=== PATIENT | female | born 1985 | race Caucasian/White ===

== ENCOUNTER 2023-06-17 23:55 | Inpatient (IN) | payer OTHER, SELFPAY ==
[2023-06-17] VITALS (34 sets, daily range): BP systolic 118–219; BP diastolic 74–153; BMI 21.9
[2023-06-17 20:40] LABS: Glucose - Point of Care 58 mg/dl (70-99)
[2023-06-17 20:58] LABS: Glucose - Point of Care 98 mg/dl (70-99)
[2023-06-17] MEDS: CORDARONE 518 MG IV (21:03)
[2023-06-17] MEDS: CARDENE 200 IV (21:06)
[2023-06-17] MEDS: DIPRIVAN 100 IV (21:06)
[2023-06-17 21:17] LABS: Hematocrit 39.7 % (37.0-47.0); Mean Corp Hgb Conc. 32.7 g/dL (33.0-37.0); Mean Corpuscular Hgb 28.1 pg (27.0-31.0); Mean Corpuscular Volume 85.7 fL (81.0-99.0); Mean Platelet Volume 10.4 fL (7.4-10.4); Platelet Count 190 10^3/uL (130-400); Red Blood Cell Count 4.63 10^6/uL (4.20-5.40); Red Cell Dist. Width 15.7 % (11.5-14.5); White Blood Cell Count 11.2 10^3/uL (4.8-10.8)
[2023-06-17 21:19] LABS: Venous Blood Gas HCO3 18.8 mmol/L (22-27); Venous Blood Gas O2 Sat % 96.2 %; Venous Blood Gas pCO2 47 mmHg (35-48); Venous Blood Gas pH 7.21 (7.32-7.43); Venous Blood Gas pO2 89 mmHg (30-50)
[2023-06-17 21:25] LABS: INR 1.05; PT 13.6 Sec (11.4-14.6)
--- NOTE | 2023-06-17 21:26 | EDRN ---
The patient arrived at 2029 via EMS. EMS reported the patient was hypotensive, had been vomiting, and has a history of kidney failure. The patient was placed on the rn cardiac and was found to be in V-Tach. The patient was talking and had a
strong femoral pulse. Dr. Yepez called to room. Dr. Yepez placed a right IJ and medications were given. (see MAR) The patients accu chek was 58. The patient started to complain of having severe chest pain and became unresponsive. The patient was
cardioverted with 250J on sync. mode. The patient continued to have a strong femoral pulse and was SB on the monitor. At 2047 the patient was intubated with a 7.5 ETT at 23 at the lip. The patient was given 40mg of vecuronium was given IV at 2048.
The patient was placed on the vent by resp.
[2023-06-17 21:34] LABS: Lactic Acid 4.1 mmol/L (0.7-2.0)
[2023-06-17 21:37] LABS: ALT (SGPT) 57 U/L (0-35); AST (SGOT) 86 U/L (14-36); Albumin 4.6 g/dl (3.5-5.0); Alkaline Phosphatase 211 U/L (38-126); Blood Urea Nitrogen 78 mg/dl (7-17); Calcium 10.4 mg/dl (8.4-10.2); Carbon Dioxide 17 mmol/L (22-30); Chloride 86 mmol/L (98-107); Glucose 247 mg/dl (70-99); Magnesium 2.8 mg/dl (1.6-2.3); Potassium 6.3 mmol/L (3.5-5.1); Sodium 130 mmol/L (135-145); Total Bilirubin 1.8 mg/dl (0.2-1.3); Total Protein 7.5 g/dl (6.3-8.2); eGFR 4.12
[2023-06-17 21:47] LABS: Troponin I 0.088 ng/ml
--- NOTE | 2023-06-17 21:48 | EDRN ---
MEDS GIVEN:
2039: Amp of 10% Calcium Chloride 1g/10mL
2039: Amp of Dextrose 25G/50mL
2041: Amp of Sodium Bicarb 50 mEq/50mL
2042: 150mg Amiodarone Bolus
2043: Cardioversion @ 250J
2044: Strong Pulse
2046: 20mg Etomidate given and tubed by Dr. Morales w/ 7.5 EtT, 23 @ the lip + color change on capnography
2048: 20mg of Vecuronium
2099: Central line placed in left groin
2101: Amp. of 10% Calcium Chloride 1g/10mL as well as an amp. of Sodium Bicarb 50mEQ/50mL
2105: Propofol and Cardene drips started
2107: Sinus Rhythm on the monitor
--- NOTE | 2023-06-17 21:57 | ED.GENMED ---
History of Present Illness
<Arsenio Yepez DO - Last Filed: 06/20/23 06:06>
General
Chief Complaint: Chest Pain
Source: patient, family and ambulance crew
Exam Limitations: clinical condition
Time Seen by Provider: 06/17/23 21:17
Travel History
Have you had any contact with someone who has COVID-19?: Unable to Answer
Do you have any symptoms of coronavirus? Fever > 100 degrees, chills, cough, shortness of breath, sore throat, loss of taste or smell, muscle aches, or headache?: Unable to Answer
History of Present Illness
History of Present Illness:
38-year-old female who presents after she began to have some GI upset yesterday and today progressed to vomiting. The patient arrives semiresponsive complaining of 'something is wrong'. EMS reported the patient is vomiting. On arrival she was
noted to be in V. tach. Patient was diaphoretic and somnolent. Further history is limited due to her clinical condition. Patient's sister later states that she got Tums yesterday and it seemed to help but today had been vomiting. She is not a
diabetic. Does have a long history of end-stage renal disease on dialysis with last dialysis event on Sunday.
Past History
<Arsenio Yepez DO - Last Filed: 06/20/23 06:06>
Past History
ED Past Medical History: HTN, Renal failure and Other (lupus)
ED Past Surgical History: Other (AV fistula)
Patient has exhibited threatening behavior?: No
PSI?: No
Phy Exam
<Arsenio Yepez, DO - Last Filed: 06/20/23 06:06>
Physical Exam
Physical Exam:
CONSTITUTIONAL ill-appearing. Somnolent, diaphoretic, cool to touch.
HEAD atraumatic, normocephalic.
EYES eyelids normal to inspection, Pupils equally round and reactive to light, Extraocular muscles intact, Conjunctiva normal, Sclera normal.
NECK normal range of motion, Trachea midline, no jugular venous distention.
RESPIRATORY CHEST moderate respiratory distress noted, Chest expansion equal.
CARDIOVASCULAR ventricular tachycardia noted on arrival
ABDOMEN abdomen flat.
UPPER EXTREMITY range of motion normal, Motor strength normal, no cyanosis, no edema. Right upper extremity AV graft noted with normal thrill
LOWER EXTREMITY range of motion normal, Motor strength normal, no cyanosis, no edema.
NEURO somewhat responsive, moves all extremities but poorly follows commands
Scores
<Mckinley Alfaro, DO - Last Filed: 06/17/23 22:16>
Heart Score for Chest Pain Patients
STEMI patient?: Not applicable
Course
<Arsenio Yepez, DO - Last Filed: 06/20/23 06:06>
Orders/Labs/Results
Orders:
Orders
06/17/23 20:44
Lorazepam [Ativan] 2 mg .ROUTE .STK-MED ONE
06/17/23 20:49
Propofol 1,000,000 Mcg/100 ml [Diprivan] 1,000,000 mcg in 100 ml .ROUTE .STK-MED
Propofol [Diprivan] 20 ml .ROUTE .STK-MED
06/17/23 20:51
Chest X-ray Portable [CR Chest Portable - 1 View] Stat
Comment:
Reason For Exam: tube placement
Reason Study Needs to be Portable: Patient Unstable
06/17/23 20:53
Amiodarone [Cordarone] 900 mg DEXTROSE 5% PVC-free BAG [D5W PVC-free BAG] 500 ml IV NOW
06/17/23 21:01
Electrocardiogram (*1) Urgent
Reason for Study: Other
Other Reason for Exam: Possible Sepsis
Cardiac Monitoring- Treatment ONCE
EKG- Treatment ONCE
06/17/23 21:04
Type+Screen Stat
Lactic Acid Stat
Blood Culture Urgent
FANY Source: Blood/Venous
Specimen Description:
06/17/23 21:05
Complete Blood Count/No Diff Stat
Comprehensive Metabolic Panel Stat
HCG, Serum Qualitative Screen Stat
Comment: ADD ON
Lipase Stat
Comment: ADD ON
Magnesium Stat
PTT Stat
Comment: ADD ON
Prothrombin Time Stat
Triglycerides Routine
Comment: baseline levels with propofol infusion
Troponin I Stat
Venous Blood Gas Stat
%Oxygen/Room Air: 100- bagged
Blood Culture Q30M
FANY Source: Blood/Venous
Specimen Description:
Comment: FROM 2 SEPARATE SITES
06/17/23 21:08
EKG [Electrocardiogram (*1)] Urgent
Reason for Study: Chest Pain
EKG- Treatment ONCE
06/17/23 21:37
CT Abd/pel Without Iv Or Oral Stat
Comment:
Reason For Exam: abd pain, vomiting, ESRD
CT Head W/o Iv Contrast Stat
Comment:
Reason For Exam: HTN, vomiting
06/17/23 21:49
Add On- LAB Stat
Tests Added?: lipase
Dextrose 50%-Water [Dextrose 50% Syringe] 25 grams IV NOW STA
Insulin Human Regular [Novolin R] 10 units IV NOW STA
06/17/23 21:52
Nicardipine 40 mg/200 ml [Cardene] 40 mg in 200 ml IV NOW
Initial dose in mg/hr, then titrate:: 5
Titrate to keep:: BP < 180/105 mmHg
Titrate by mg/hr:: 2.5 mg/hr
Frequency of titrations (minutes):: 5-15 minutes
Maximum dose in mg/hr:: 15
Begin to taper infusion when:: Remained at goal for 2hrs
Taper by mg/hr:: 2.5 mg/hr
Frequency of taper (minutes) if patient maintains goal:: 15-30 minutes
Taper to off?: Yes
If infusion off & no longer maintaining goal:: Contact Provider
06/17/23 21:53
Add On- LAB Stat
Tests Added?: HCG qualitative
06/17/23 21:55
Propofol 1,000,000 Mcg/100 ml [Diprivan] 1,000,000 mcg in 100 ml IV NOW
Indication:: Light Sedation
Begin Infusion:: Now
Goal:: RASS 0 to -2
Maximum dose in mcg/kg/min:: 50
Initial dose based on RASS:: Yes
If RASS is:: +1 or pt hemodynamically unstable (SBP < 90mmHg), initiate at 10 mcg/kg/min
If RASS is:: +2, initiate at 20 mcg/kg/min
If RASS is:: greater than or equal to +3, initiate at 30 mcg/kg/min
Titration Instructions:: Titrate by 5-10 mcg/kg/min every 5 minutes until RASS 0 to -2 achieved.
Taper Instructions:: If RASS is at or below goal for 4 consecutive hours decrease infusion by
Taper Instructions:: 5-10 mcg/kg/min every 2 hours to off.
Over-sedation Instructions:: If CPOT 0-2 (at goal) AND RASS -3 to -5 (below goal) decrease sedative by
Over-sedation Instructions:: 50% first. If pain score remains at goal and RASS remains below goal in
Over-sedation Instructions:: 1 hour, decrease opioid infusion by 50%.
Notify provider:: immediately if patient exhibits signs/symptoms of propofol-related
Notify provider:: infusion syndrome.
Additional Instructions:: Patient MUST be mechanically ventilated and MUST receive analgesia.
06/17/23 21:58
Sodium Zirconium Cyclosilicate [Lokelma] 10 gram PO NOW STA
06/17/23 21:59
Sodium Bicarbonate 50 meq IV NOW STA
06/17/23 22:02
Cefepime HCl [Maxipime] 1,000 mg IV NOW STA
Vancomycin 1 Gram/200 ml [Vancocin] 1 gram in 200 ml IV NOW
06/17/23 22:05
Vancomycin 1 Gram/200 ml [Vancocin] 1 gram in 200 ml .ROUTE .STK-MED
06/17/23 22:07
Hemodialysis treatment As Directed
Treatment date:: 06/18/23
Treatment type: Hemodialysis
Ultrafiltration (kg): 2.5-3.5
Treatment time (duration): 3 hours 30 minutes
Use dialysis access:: AVF
Dialyzer:: Optiflux 160
Blood flow rate minimum: 350
Blood flow rate maximum: 400
Dialysis flow rate: 600 mL/min
Dialysate temperature: 37 degrees Celsius
Sodium (Na): 137
Potassium (K): 2
Calcium (Ca): 2.5
Bicarbonate (HCO3): 37
06/17/23 23:00
Flush (0.9% Sodium Chloride) [Flush (Nss)] See Dose Instructions IV PER PROTOCOL
06/17/23 23:53
Admit/Transfer Patient As Directed
Co-Sign Provider:
Level of Care: Inpatient admission
Assign to:: ICU
Physician / Group: Srini
Diagnosis: Ventricular Tachycardia, Hyperkalemia, ESRD
Reason for Hospitalization: Ventricular Tachycardia, Hyperkalemia, ESRD
Expected length of stay greater than two midnights?: Yes
ELOS- Estimated Length of Stay in days: 5
I certify the patient meets the requirements for IP care: Yes
06/18/23 01:13
Acetaminophen [Tylenol Oral Solution] 650 mg TUBE Q6H PRN
Propofol 1,000,000 Mcg/100 ml [Diprivan] 1,000,000 mcg in 100 ml IV PER PROTOCOL
Indication:: Light Sedation
Begin Infusion:: Now
Goal:: RASS 0 to -2
Maximum dose in mcg/kg/min:: 50
Continue currently infusion dose and titrate:: Yes
Titration Instructions:: Titrate by 5-10 mcg/kg/min every 5 minutes until RASS 0 to -2 achieved.
Taper Instructions:: If RASS is at or below goal for 4 consecutive hours decrease infusion by
Taper Instructions:: 5-10 mcg/kg/min every 2 hours to off.
Over-sedation Instructions:: If CPOT 0-2 (at goal) AND RASS -3 to -5 (below goal) decrease sedative by
Over-sedation Instructions:: 50% first. If pain score remains at goal and RASS remains below goal in
Over-sedation Instructions:: 1 hour, decrease opioid infusion by 50%.
Notify provider:: immediately if patient exhibits signs/symptoms of propofol-related
Notify provider:: infusion syndrome.
Additional Instructions:: Patient MUST be mechanically ventilated and MUST recieve analgesia
VANCOMYCIN Pharmacy to Dose [VANCOCIN Pharmacy to Dose] 1 each Pharmacy To Prepare [Call Pharmacy To Prepare] 0 ml IV PER PROTOCOL
06/18/23 01:13
CARDIOLOGY CONSULT Routine
Consulting Provider: John Longo
Was physician already notified: Yes
Reason for consult: Ventricular Tachycardia, Hyperkalemia, ESRD
Consult Notification Routine
Specialty to Notify: [employer]
Date consulting provider notified: 06/18/23
Time consulting provider notified: 08:22
Notified:: Provider
[employer] Consult Routine
Consulting Provider: Howie Carrion
Was physician already notified: No
Reason for consult: Ventricular Tachycardia, Hyperkalemia, ESRD
NEPHROLOGY CONSULT Urgent
Consulting Provider: Aziza Desai
Was physician already notified: Yes
Reason for consult: Ventricular Tachycardia, Hyperkalemia, ESRD
Activity As Directed
Activity Level: Bedrest
EKG with chest pain [ECG as needed] As Directed
ECG as needed for:: Chest Pain
I/O [Intake/ Output] As Directed
Frequency: Per unit guidelines
Pneumatic Compression Sleeves As Directed
Type: Knee high
Vital Signs As Directed
Frequency: Per unit guidelines
Weight As Directed
Frequency: Daily
DX Deep Vein Thrombosis Video Routine
06/18/23 02:31
BMP [Basic Metabolic Panel] Routine
TSH Reflex To Free T4 Routine
Triglycerides Routine
Comment: baseline levels with propofol infusion
06/18/23 05:40
Basic Metabolic Panel IN AM
Complete Blood Count/No Diff IN AM
Magnesium IN AM
Phosphorus IN AM
06/18/23 06:00
EKG [Electrocardiogram (*1)] IN AM
Reason for Study: Chest Pain
NPO
Allow oral meds: Yes
Allow clear liquids: Sips of Clears
06/18/23 08:00
Mannitol 12.5 grams IV HD-Q1HPRN PRN
Polyethylene Glycol Powder [Miralax] 17 grams TUBE DAILY
06/20/23 04:32
Triglycerides Q3D
Comment: every 72 hours while patient is on propofol
06/23/23 06:00
Triglycerides Q3D
Comment: every 72 hours while patient is on propofol
06/26/23 06:00
Triglycerides Q3D
Comment: every 72 hours while patient is on propofol
Abnormal Lab Results
06/17/23 06/17/23 06/17/23
20:39 21:04 21:05
WBC 11.2 H 10^3/uL
(4.8-10.8)
MCHC 32.7 L g/dL
(33.0-37.0)
RDW 15.7 H %
(11.5-14.5)
APTT 36.3 H Sec
(23.4-35.0)
VBG pH 7.21 L
(7.32-7.43)
VBG pO2 89 H mmHg
(30-50)
VBG HCO3 18.8 L mmol/L
(22-27)
Sodium 130 L mmol/L
(135-145)
Potassium 6.3 H* mmol/L
(3.5-5.1)
Chloride 86 L mmol/L
(98-107)
Carbon Dioxide 17 L mmol/L
(22-30)
BUN 78 H mg/dl
(7-17)
Creatinine 11.1 H* mg/dL
(0.6-1.0)
Glucose 247 H mg/dl
(70-99)
Lactic Acid 4.1 H* mmol/L
(0.7-2.0)
Calcium 10.4 H mg/dl
(8.4-10.2)
Magnesium 2.8 H mg/dl
(1.6-2.3)
Total Bilirubin 1.8 H mg/dl
(0.2-1.3)
AST 86 H U/L
(14-36)
ALT 57 H U/L
(0-35)
Alkaline Phosphatase 211 H U/L
(38-126)
Troponin I 0.088 H* ng/ml
Triglycerides 150 H mg/dl
(10-149)
POC Glucose 58 L mg/dl
(70-99)
06/17/23
22:13
WBC
MCHC
RDW
APTT
VBG pH
VBG pO2
VBG HCO3
Sodium
Potassium
Chloride
Carbon Dioxide
BUN
Creatinine
Glucose
Lactic Acid
Calcium
Magnesium
Total Bilirubin
AST
ALT
Alkaline Phosphatase
Troponin I
Triglycerides
POC Glucose 205 H mg/dl
(70-99)
06/17/23 21:05
06/17/23 21:05
Vital Signs
Initial and Last Documented VS:
Initial Vital Signs
Temp Pulse Resp BP Pulse Ox
94.2 F L 180 18 143/112 96
06/17/23 20:45 06/17/23 20:45 06/17/23 20:45 06/17/23 20:45 06/17/23 20:45
Last Documented Vital Signs
Temp Pulse Resp BP Pulse Ox
97.9 F 69 20 141/98 94
06/20/23 04:00 06/20/23 04:00 06/19/23 09:55 06/20/23 04:00 06/20/23 04:00
<Mckinley Alfaro, DO - Last Filed: 06/17/23 22:16>
Orders/Labs/Results
Orders:
Orders
06/17/23 20:44
Lorazepam [Ativan] 2 mg .ROUTE .STK-MED ONE
06/17/23 20:49
Propofol 1,000,000 Mcg/100 ml [Diprivan] 1,000,000 mcg in 100 ml .ROUTE .STK-MED
Propofol [Diprivan] 20 ml .ROUTE .STK-MED
06/17/23 20:51
Chest X-ray Portable [CR Chest Portable - 1 View] Stat
Comment:
Reason For Exam: tube placement
Reason Study Needs to be Portable: Patient Unstable
06/17/23 20:53
Amiodarone [Cordarone] 900 mg DEXTROSE 5% PVC-free BAG [D5W PVC-free BAG] 500 ml IV NOW
06/17/23 21:01
Electrocardiogram (*1) Urgent
Reason for Study: Other
Other Reason for Exam: Possible Sepsis
Cardiac Monitoring- Treatment ONCE
EKG- Treatment ONCE
06/17/23 21:04
Type+Screen Stat
Lactic Acid Stat
Blood Culture Urgent
FANY Source: Blood/Venous
Specimen Description:
06/17/23 21:05
Complete Blood Count/No Diff Stat
Comprehensive Metabolic Panel Stat
HCG, Serum Qualitative Screen Stat
Comment: ADD ON
Lipase Stat
Comment: ADD ON
Magnesium Stat
PTT Stat
Comment: ADD ON
Prothrombin Time Stat
Triglycerides Routine
Comment: baseline levels with propofol infusion
Troponin I Stat
Venous Blood Gas Stat
%Oxygen/Room Air: 100- bagged
Blood Culture Q30M
FANY Source: Blood/Venous
Specimen Description:
Comment: FROM 2 SEPARATE SITES
06/17/23 21:08
EKG [Electrocardiogram (*1)] Urgent
Reason for Study: Chest Pain
EKG- Treatment ONCE
06/17/23 21:37
CT Abd/pel Without Iv Or Oral Stat
Comment:
Reason For Exam: abd pain, vomiting, ESRD
CT Head W/o Iv Contrast Stat
Comment:
Reason For Exam: HTN, vomiting
06/17/23 21:49
Add On- LAB Stat
Tests Added?: lipase
Dextrose 50%-Water [Dextrose 50% Syringe] 25 grams IV NOW STA
Insulin Human Regular [Novolin R] 10 units IV NOW STA
06/17/23 21:52
Nicardipine 40 mg/200 ml [Cardene] 40 mg in 200 ml IV NOW
Initial dose in mg/hr, then titrate:: 5
Titrate to keep:: BP < 180/105 mmHg
Titrate by mg/hr:: 2.5 mg/hr
Frequency of titrations (minutes):: 5-15 minutes
Maximum dose in mg/hr:: 15
Begin to taper infusion when:: Remained at goal for 2hrs
Taper by mg/hr:: 2.5 mg/hr
Frequency of taper (minutes) if patient maintains goal:: 15-30 minutes
Taper to off?: Yes
If infusion off & no longer maintaining goal:: Contact Provider
06/17/23 21:53
Add On- LAB Stat
Tests Added?: HCG qualitative
06/17/23 21:55
Propofol 1,000,000 Mcg/100 ml [Diprivan] 1,000,000 mcg in 100 ml IV NOW
Indication:: Light Sedation
Begin Infusion:: Now
Goal:: RASS 0 to -2
Maximum dose in mcg/kg/min:: 50
Initial dose based on RASS:: Yes
If RASS is:: +1 or pt hemodynamically unstable (SBP < 90mmHg), initiate at 10 mcg/kg/min
If RASS is:: +2, initiate at 20 mcg/kg/min
If RASS is:: greater than or equal to +3, initiate at 30 mcg/kg/min
Titration Instructions:: Titrate by 5-10 mcg/kg/min every 5 minutes until RASS 0 to -2 achieved.
Taper Instructions:: If RASS is at or below goal for 4 consecutive hours decrease infusion by
Taper Instructions:: 5-10 mcg/kg/min every 2 hours to off.
Over-sedation Instructions:: If CPOT 0-2 (at goal) AND RASS -3 to -5 (below goal) decrease sedative by
Over-sedation Instructions:: 50% first. If pain score remains at goal and RASS remains below goal in
Over-sedation Instructions:: 1 hour, decrease opioid infusion by 50%.
Notify provider:: immediately if patient exhibits signs/symptoms of propofol-related
Notify provider:: infusion syndrome.
Additional Instructions:: Patient MUST be mechanically ventilated and MUST receive analgesia.
06/17/23 21:58
Sodium Zirconium Cyclosilicate [Lokelma] 10 gram PO NOW STA
06/17/23 21:59
Sodium Bicarbonate 50 meq IV NOW STA
06/17/23 22:02
Cefepime HCl [Maxipime] 1,000 mg IV NOW STA
Vancomycin 1 Gram/200 ml [Vancocin] 1 gram in 200 ml IV NOW
06/17/23 22:05
Vancomycin 1 Gram/200 ml [Vancocin] 1 gram in 200 ml .ROUTE .STK-MED
06/17/23 22:07
Hemodialysis treatment As Directed
Treatment date:: 06/18/23
Treatment type: Hemodialysis
Ultrafiltration (kg): 2.5-3.5
Treatment time (duration): 3 hours 30 minutes
Use dialysis access:: AVF
Dialyzer:: Optiflux 160
Blood flow rate minimum: 350
Blood flow rate maximum: 400
Dialysis flow rate: 600 mL/min
Dialysate temperature: 37 degrees Celsius
Sodium (Na): 137
Potassium (K): 2
Calcium (Ca): 2.5
Bicarbonate (HCO3): 37
06/17/23 23:00
Flush (0.9% Sodium Chloride) [Flush (Nss)] See Dose Instructions IV PER PROTOCOL
06/17/23 23:53
Admit/Transfer Patient As Directed
Co-Sign Provider:
Level of Care: Inpatient admission
Assign to:: ICU
Physician / Group: Srini
Diagnosis: Ventricular Tachycardia, Hyperkalemia, ESRD
Reason for Hospitalization: Ventricular Tachycardia, Hyperkalemia, ESRD
Expected length of stay greater than two midnights?: Yes
ELOS- Estimated Length of Stay in days: 5
I certify the patient meets the requirements for IP care: Yes
06/18/23 01:13
Acetaminophen [Tylenol Oral Solution] 650 mg TUBE Q6H PRN
Propofol 1,000,000 Mcg/100 ml [Diprivan] 1,000,000 mcg in 100 ml IV PER PROTOCOL
Indication:: Light Sedation
Begin Infusion:: Now
Goal:: RASS 0 to -2
Maximum dose in mcg/kg/min:: 50
Continue currently infusion dose and titrate:: Yes
Titration Instructions:: Titrate by 5-10 mcg/kg/min every 5 minutes until RASS 0 to -2 achieved.
Taper Instructions:: If RASS is at or below goal for 4 consecutive hours decrease infusion by
Taper Instructions:: 5-10 mcg/kg/min every 2 hours to off.
Over-sedation Instructions:: If CPOT 0-2 (at goal) AND RASS -3 to -5 (below goal) decrease sedative by
Over-sedation Instructions:: 50% first. If pain score remains at goal and RASS remains below goal in
Over-sedation Instructions:: 1 hour, decrease opioid infusion by 50%.
Notify provider:: immediately if patient exhibits signs/symptoms of propofol-related
Notify provider:: infusion syndrome.
Additional Instructions:: Patient MUST be mechanically ventilated and MUST recieve analgesia
VANCOMYCIN Pharmacy to Dose [VANCOCIN Pharmacy to Dose] 1 each Pharmacy To Prepare [Call Pharmacy To Prepare] 0 ml IV PER PROTOCOL
06/18/23 01:13
CARDIOLOGY CONSULT Routine
Consulting Provider: John Longo
Was physician already notified: Yes
Reason for consult: Ventricular Tachycardia, Hyperkalemia, ESRD
Consult Notification Routine
Specialty to Notify: [employer]
Date consulting provider notified: 06/18/23
Time consulting provider notified: 08:22
Notified:: Provider
[employer] Consult Routine
Consulting Provider: Howie Carrion
Was physician already notified: No
Reason for consult: Ventricular Tachycardia, Hyperkalemia, ESRD
NEPHROLOGY CONSULT Urgent
Consulting Provider: Aziza Desai
Was physician already notified: Yes
Reason for consult: Ventricular Tachycardia, Hyperkalemia, ESRD
Activity As Directed
Activity Level: Bedrest
EKG with chest pain [ECG as needed] As Directed
ECG as needed for:: Chest Pain
I/O [Intake/ Output] As Directed
Frequency: Per unit guidelines
Pneumatic Compression Sleeves As Directed
Type: Knee high
Vital Signs As Directed
Frequency: Per unit guidelines
Weight As Directed
Frequency: Daily
DX Deep Vein Thrombosis Video Routine
06/18/23 02:31
BMP [Basic Metabolic Panel] Routine
TSH Reflex To Free T4 Routine
Triglycerides Routine
Comment: baseline levels with propofol infusion
06/18/23 05:40
Basic Metabolic Panel IN AM
Complete Blood Count/No Diff IN AM
Magnesium IN AM
Phosphorus IN AM
06/18/23 06:00
EKG [Electrocardiogram (*1)] IN AM
Reason for Study: Chest Pain
NPO
Allow oral meds: Yes
Allow clear liquids: Sips of Clears
06/18/23 08:00
Mannitol 12.5 grams IV HD-Q1HPRN PRN
Polyethylene Glycol Powder [Miralax] 17 grams TUBE DAILY
06/20/23 04:32
Triglycerides Q3D
Comment: every 72 hours while patient is on propofol
06/23/23 06:00
Triglycerides Q3D
Comment: every 72 hours while patient is on propofol
06/26/23 06:00
Triglycerides Q3D
Comment: every 72 hours while patient is on propofol
Abnormal Lab Results
06/17/23 06/17/23 06/17/23
20:39 21:04 21:05
WBC 11.2 H 10^3/uL
(4.8-10.8)
MCHC 32.7 L g/dL
(33.0-37.0)
RDW 15.7 H %
(11.5-14.5)
APTT 36.3 H Sec
(23.4-35.0)
VBG pH 7.21 L
(7.32-7.43)
VBG pO2 89 H mmHg
(30-50)
VBG HCO3 18.8 L mmol/L
(22-27)
Sodium 130 L mmol/L
(135-145)
Potassium 6.3 H* mmol/L
(3.5-5.1)
Chloride 86 L mmol/L
(98-107)
Carbon Dioxide 17 L mmol/L
(22-30)
BUN 78 H mg/dl
(7-17)
Creatinine 11.1 H* mg/dL
(0.6-1.0)
Glucose 247 H mg/dl
(70-99)
Lactic Acid 4.1 H* mmol/L
(0.7-2.0)
Calcium 10.4 H mg/dl
(8.4-10.2)
Magnesium 2.8 H mg/dl
(1.6-2.3)
Total Bilirubin 1.8 H mg/dl
(0.2-1.3)
AST 86 H U/L
(14-36)
ALT 57 H U/L
(0-35)
Alkaline Phosphatase 211 H U/L
(38-126)
Troponin I 0.088 H* ng/ml
Triglycerides 150 H mg/dl
(10-149)
POC Glucose 58 L mg/dl
(70-99)
06/17/23
22:13
WBC
MCHC
RDW
APTT
VBG pH
VBG pO2
VBG HCO3
Sodium
Potassium
Chloride
Carbon Dioxide
BUN
Creatinine
Glucose
Lactic Acid
Calcium
Magnesium
Total Bilirubin
AST
ALT
Alkaline Phosphatase
Troponin I
Triglycerides
POC Glucose 205 H mg/dl
(70-99)
06/17/23 21:05
06/17/23 21:05
Vital Signs
Initial and Last Documented VS:
Initial Vital Signs
Temp Pulse Resp BP Pulse Ox
94.2 F L 180 18 143/112 96
06/17/23 20:45 06/17/23 20:45 06/17/23 20:45 06/17/23 20:45 06/17/23 20:45
Last Documented Vital Signs
Temp Pulse Resp BP Pulse Ox
97.9 F 69 20 141/98 94
06/20/23 04:00 06/20/23 04:00 06/19/23 09:55 06/20/23 04:00 06/20/23 04:00
Procedures
<Arsenio Yepez, DO - Last Filed: 06/20/23 06:06>
Cardioversion
Indication:: Other (VT)
Performed by:: Dr Yepez
Energy Used: Other (360)
Number of attempts: 1
Successful?: Yes
Complications: none
Intubations
Procedure completed by: Dr Yepez
Method of Intubation: glidescope
Tube size (cm): 7.5
Placement confirmed by: CXR, capnography and direct visualization
Breath sounds after intubation: equal
Intubation complications: no complications
IV Access
Indication: Emergent access required
Performed by:: Dr Yepez
Site:: R EJ
Gauge:: 20
Ultrasound Guidance: No
<Mckinley Alfaro, DO - Last Filed: 06/17/23 22:16>
Central Line
Right Femoral:
Indication for procedure:: venous access
Procedure completed by: Me, Dr. Alfaro
Consent form signed: No
If no, reason: Emergency procedure
Anesthesia: 1% Lidocaine
Central line lumen: triple
Number of attempts: 1
Central line complications: none
Sterile dressing applied?: Yes
Additional information:
I assisted Dr. Yepez as he was primarily caring for this patient but patient had poor venous access with inability to obtain labs. I emergently placed femoral line as patient was in the heaven-code situation and was getting intubated.
<Arsenio Yepez, DO - Last Filed: 06/20/23 06:06>
MDM/Problems Addressed
MDM/Problems Addressed:
Acute hyperkalemia, vomiting, acidosis, lactic acidosis, respiratory failure, ventricular tachycardia, hypoglycemia
Chronic conditions affecting care: Kidney disease
<Arsenio Yepez, DO - Last Filed: 06/20/23 06:06>
*Radiology
Radiology exam reviewed: preliminary read by ED provider (ET tube in correct position, cardiomegaly noted)
*Pulse Oximetry
Patient hypoxic: yes
*EKG
Interpreted by ED Provider?: Yes
Interpretation: abnormal
Rate: bradycardiac
Rhythm: other (Junctional)
QRS Pattern: left vent hypertrophy
Ischemia: other (Hyperacute T waves)
*Outpatient Physical Therapist Interpretation
Rate: tachycardiac
Interpretation: abnormal
Rhythm: other (Ventricular tachycardia on arrival)
*Critical Care Note
Total Time (30-74mins, 75-104mins- exclusive of procedures): 80 minutes
Data Reviewed
Review of Other/Old Records Reveals: Labs and Records
Source: ambulance crew
<Arsenio Yepez DO - Last Filed: 06/20/23 06:06>
Patient Management
Discussion with other providers: Records Management Coordinator (Case discussed with nephrology who recommends additional sodium bicarbonate, Lokelma via NG tube and to add nitroglycerin if blood pressure continues to be elevated. She will consider hemodialysis early
in the a.m. versus emergent)
Escalation/DeEscalation of care consider admission/obs:
38-year-old female who arrives with EMS for vomiting. Noted to be in VT. Given calcium and bicarb emergently on arrival. This did not resolve VT. She subsequently had an unresponsive event where it appeared to be seizing. She was intubated and
cardioverted. She had a pulse with her VT. Amiodarone bolus was given followed by drip. In addition, after cardioversion, she had a junctional rhythm with hyperacute T waves. She was given additional calcium and sodium bicarbonate bolus.
Shortly after this, she converted to normal sinus rhythm. Blood pressure is uncontrolled. Cardene drip initiated. Case was discussed with nephrology with regards to the possibility of emergent hemodialysis. She agreed with management and advised
as above. She is hypothermic. Broad-spectrum antibiotics ordered. In addition we will CT head and abdomen and pelvis in light of her reports of vomiting and hypertension. Admit to ICU. Now on propofol, amiodarone, Cardene.
ED Attending Note
<Arsenio Yepez DO - Last Filed: 06/20/23 06:06>
-
Portions of this chart may have been created with voice recognition software.� Occasional wrong word or��sound alike� substitutions may have occurred due to the inherent limitations of voice recognition software.
Discharge Plan
Departure
Patient Disposition: Admit
Date of Disposition: 06/17/23
Time of Disposition: 21:57
Admit to: ICU
Presentation/result/management discussed w/ accepting MD/DO: Hospitalist
Discharge Problem:
Acute hyperkalemia, End stage kidney disease, Ventricular tachycardia, vent dependent respiratory failure
Interventions
Interventions:
*Risk Screen - Suicide Last Done: 06/17/23 20:45
*General Assessment Last Done: 06/17/23 20:45
*Neglect/Abuse Screening Last Done: 06/17/23 20:45
ED- Fall Risk Assessment Last Done: 06/17/23 20:35
*ED COVID-19 Vaccine History Last Done: 06/17/23 20:45
*Nursing Disposition Last Done: 06/18/23 01:31
ED- Cardiac Assessment Last Done: 06/17/23 20:35
Discharge Date and Time
Discharge Date/Time: 06/18/23 01:33
[2023-06-17 22:14] LABS: Glucose - Point of Care 205 mg/dl (70-99)
[2023-06-17] MEDS: NOVOLIN R 10 UNITS IV (22:20)
[2023-06-17] MEDS: LOKELMA 10 GRAM PO (22:23)
[2023-06-17] MEDS: DEXTROSE 50% SYRINGE 25 GRAMS IV (22:23)
[2023-06-17] MEDS: MAXIPIME 1000 MG IV (22:24)
[2023-06-17] MEDS: SODIUM BICARBONATE 50 MEQ IV (22:24)
[2023-06-17 22:25] LABS: HCG, Serum Qualitative Screen Negative
[2023-06-17] MEDS: VANCOCIN 200 IV (22:25)
[2023-06-17 22:28] LABS: Lipase 182 U/L (23-300)
--- NOTE | 2023-06-17 22:40 | EDRN ---
Respiratory at bedside along with myself and a PCT over to CT to obtain head and abdominal CT, patients vital signs remained stable during transport and returning, when moving patient from CT table back onto stretcher noted white liquid from mouth
and on sheet, appear to be the Lokelma that was given earlier. Dr. Milligan aware of this when doing the admission, when returning back from CT, patients sheets changed onto dry sheets, when rolling patient blood tinged nasal secretions noted, patient
cleaned up, OJ tube hooked back up to low intermittent suction. Sister is at bedside with patient.
[2023-06-17 23:02] LABS: Triglycerides 150 mg/dl (10-149)
--- NOTE | 2023-06-17 23:15 | EDRN ---
Informed Dr. Morales that Cardene was turned off as blood pressure is trending down significantly, BP at this time, 126/79, Dr. Morales agrees to stop Cardene at this time.
--- NOTE | 2023-06-17 23:33 | EDRN ---
Dr. Milligan at bedside working on admission, speaking with patients sister about patient and going over medications patient is on.
[2023-06-18] VITALS (22 sets, daily range): BP systolic 134–196; BP diastolic 84–123; BMI 20.1
--- NOTE | 2023-06-18 00:05 | HPS.HSE ---
Family Physician
-
Family Physician: INTERVIEWE UNKNOWN - PT NOT
Chief Complaint
-
N/V
History of Present Illness
Patient is a 38y F with PMH significant for ESRD on HD and [id number] hypertension who presents to ED complaining of sense of impending doom with recent N/V and abdominal pain. History at the time of my exam obtained from sister at the
bedside and discussion with ED staff.
Patient lives in [facility] and is visiting her sister here in [facility]. She completed her usual HD session on Sunday and drove to [place]. She complained of a headache on Sunday, which is not unusual for her s/p HD.
On Sunday, patient complained of mild abdominal discomfort and had several episodes of non-bloody, bilious emesis. She took some antacids and her symptoms seemed to improve.
Today, patent had recurrent abdominal discomfort and further episodes of N/V - this time with some noted bright red blood in the emesis. She continued to feel poorly throughout the day.
This evening, her sister noted that she appeared suddenly very pale and clammy and seemed less responsive. She called 911 at this point and patient was brought to the ED by EMS.
On arrival to the ED, patient was noted to be in ventricular tachycardia. She had pulses but was lethargic / poorly responsive.
Patient received initial bolus doses of calcium and sodium bicarbonate without prompt improvement. She underwent intubation and cardioversion here in the ED with return to a sinus rhythm.
There was some transient bradycardia but this quickly resolved.
Patient was placed on amiodarone infusion as well as nicardipine gtt for marked hypertension.
At the time of my examination, patient is sedated on ventilator support. Sister is at the bedside to provide additional history as noted above.
Sister states that patient typically received HD on schedule. No recent missed sessions.
She is on a strict fluid restriction to manage her volume and has had issues recently with elevated potassium levels.
Her manufacturing maintenance mechanic in [facility] is Dr. Alexandra Brian .
Medical History
Past Medical History
Past Medical History: Reports Other
Additional Past Medical History:
ESRD on HD - History of PD, Renal Transplant
Hypertension
Migraine Headaches
Chronic Hyperkalemia
Lupus
Past Surgical History: Reports Other
Additional Past Surgical History:
Kidney Transplant (2019) - Explanted due to Rejection
PD Catheter Placement / Removal
RUE AVF
Cholecystectomy
Social History
Tobacco: Other (Occasional / social smoker. Not daily use.)
Alcohol: Occasional (Rare EtOH use.)
Drug: None
Family History
Family History: Not pertinent
Allergies / Home Medications
Allergies reflects when Allergies were last updated in [email or web address].
Home Medications with original date entered in [email or web address]
Allergy/Medication List:
Allergies
Allergy/AdvReac Type Severity Reaction Status Date / Time
No Known Allergies Allergy Unverified 03/05/22 12:32
Home Medications
aspirin 81 mg tablet,delayed release 81 mg PO DAILY 03/05/22
dicyclomine 20 mg tablet 20 mg PO TIDPRN PRN spasms 03/05/22
hydralazine 100 mg tablet 100 mg PO TID 03/05/22
nifedipine 60 mg tablet,extended release 24 hr 60 mg PO BID 03/05/22
oxycodone 5 mg tablet 5 mg PO BIDPRN PRN severe pain 03/05/22
pantoprazole 40 mg tablet,delayed release 40 mg PO DAILY 03/05/22
clonidine HCl 0.1 mg tablet 0.1 mg PO TID 06/17/23
gabapentin 100 mg capsule 100 mg PO DAILY PRN Headache 06/17/23
hydroxyzine HCl 50 mg tablet 50 mg PO TID PRN itching 06/17/23
labetalol 300 mg tablet 300 mg PO TID 06/17/23
losartan 100 mg tablet 100 mg PO DAILY 06/17/23
Med List was reconciled with medication bottles physically in the patient's bag.
Note that this is not consistent with her hand written, undated medication list on her person.
Review of Systems
-
Unable to obtain full review of systems at this time due to: Patient Intubation
Physical Exam
Vital Signs
Vital Signs
Temp Pulse Resp BP Pulse Ox
95.6 F L 100 16 137/93 100
06/17/23 23:10 06/18/23 00:00 06/18/23 00:00 06/18/23 00:00 06/18/23 00:00
Physical Exam
General: Other (Ill-appearing, sedated 38y F. Cool to touch. )
HEENT: Moist mucous membranes, PERRLA and Other (ETT and OGT in place.)
Respiratory: Other (Decreased at bases - otherwise clear.)
Cardiac: S1/S2, Regular Rhythm and Murmur (Systolic > Diastolic Murmurs Increased apical impulse on exam.)
GI: Soft, Non Tender, Non Distended and Normal Bowel Sounds
Musculoskeletal: No Clubbing, No Cyanosis and No Edema
Neuro: Sedated
Hematologic/Lymphatic: Other (RUE AVF at the wrist with pos thrill / bruit.)
Laboratory Results
-
06/17/23 21:05
06/17/23 21:05
Laboratory Results
PT 13.6 Sec (11.4-14.6) 06/17/23 21:05
INR 1.05 06/17/23 21:05
Lactic Acid 4.1 mmol/L (0.7-2.0) H* 06/17/23 21:04
Total Bilirubin 1.8 mg/dl (0.2-1.3) H 06/17/23 21:05
AST 86 U/L (14-36) H 06/17/23 21:05
ALT 57 U/L (0-35) H 06/17/23 21:05
Alkaline Phosphatase 211 U/L (38-126) H 06/17/23 21:05
Troponin I 0.088 ng/ml H* 06/17/23 21:05
Lipase 182 U/L (23-300) 06/17/23 21:05
Impression/Plan
-
A/P: Patient is a 38y F with PMH significant for HTN and ESRD on HD who presents to ED in [place] with complaints of abdominal pain and N/V.
Ventricular Tachycardia
Hyperkalemia
Prolonged QTc
- Admit to ICU for further evaluation and treatment.
- Temporizing measures performed in the ED for hyperkalemia.
- Lokelma given via OGT; however, some of this may have subsequently leaked from the tube.
- Repeat labs at 1 AM and 6 AM.
- Additional bicarb, insulin, etc as needed to manage hyperkalemia.
- Plan is for urgent HD in the AM - possibly sooner if arrhythmias recur despite medical management.
- Continue amiodarone for now given VT episode. Follow QT closely.
- Cardiology consulted.
- Check Echo in AM.
ESRD on HD
Acute on Chronic Hyperkalemia
- s/p HD session on Sunday with no missed sessions.
- Followed with Dr. Alexandra Brian in [facility].
- Has apparently had recent issues with hyperkalemia and meds have been adjusted as a result.
- Would hold ARB / losartan.
- Nephrology evaluation as noted above.
- Plan for HD in the early AM.
- Though med lists are unclear, patient was previously on spironolactone and appears to currently be on losartan as noted above.
Hypertensive Emergency
- BP markedly elevated in the ED after temple to sinus rhythm.
- Nicardipine infusion initiated - titrate for adequate control.
- Family notes long history of opqfbrnwf-[id number] HTN despite multiple agents / med changes / etc.
- Adjust IV medications for now.
- Resume / restart enteral meds when appropriate.
- Nephrology input as noted above.
VDRF
- Patient intubated in the ED for airway protection during VT treatment, cardioversion, etc.
- Maintain vent support overnight.
- Treat possible pneumonia as noted below.
- Sports Psychologist evaluation.
- Sedation protocols.
Pneumonia
- CT scan shows bilateral lower lobe opacities c/w pneumonia.
- ? initial pneumonia which triggered GI symptoms, etc - versus aspiration due to recurrent N/V.
- Patient hypothermic in the ED - continue Bridget hugger.
- Continue abx dosed for HD pending clinical improvement / culture data / etc.
- With ground glass opacities and GI symptoms, would check COVID status.
Intractable N/V
Hematemesis
- ? primary gastroenteritis v sequelae of underlying pneumonia, etc.
- Suspect that N/V plus baseline hyperkalemia precipitated presenting events.
- Blood seen in emesis today is likely secondary to mucosal injury / Araceli-Zaragoza due to persistent emesis.
- IV PPI BID for now.
- GI evaluation for any additional recommendations.
- OG tube to suction. Follow for any recurrent emesis or other new complaints.
- CT A/P done in the ED with no acute intra-abdominal pathology.
Abnormal LFTs
Lactic Acidosis
- Suspect this is secondary to hypoperfusion in the setting of VT.
- ? component of viral process / infection / sepsis given concurrent pneumonia.
- Follow for improvement with treatment outlined above.
DVT Prophylaxis: Subcut heparin
Code Status: Full
[2023-06-18 01:15] LABS: APTT 36.3 Sec (23.4-35.0)
--- NOTE | 2023-06-18 01:15 | EDRN ---
Report to to ICU, transported to ICU with PCT and respiratory.
[2023-06-18 01:17] LABS: COVID-19 Antigen Negative (Negative)
--- NOTE | 2023-06-18 01:26 | W.PN.SEPSIS ---
Sepsis
Vital Signs
Temp Pulse Resp BP Pulse Ox
96.6 F L 100 16 149/98 100
06/18/23 01:24 06/18/23 00:35 06/18/23 00:35 06/18/23 00:35 06/18/23 00:35
Physical Exam
Physical Exam:
A focused exam was performed after fluid resuscitation.
Capillary Refill
Bilateral Upper Extremity:
Floresita Time: Less than 3 sec
Bilateral Lower Extremity:
Floresita Time: Less than 3 sec
Pulse Evaluation
Bilateral Radial:
Pulse Evaluation: Present
Bilateral Dorsalis Pedis:
Pulse Evaluation: Present
[2023-06-18] MEDS: CARDENE 200 IV ×2 (01:38→18:28)
[2023-06-18] MEDS: SUBLIMAZE 50 MCG IV ×3 (01:48→04:27)
[2023-06-18] MEDS: SUBLIMAZE 100 IV ×2 (01:49→21:20)
[2023-06-18 02:56] LABS: Lactic Acid 0.9 mmol/L (0.7-2.0)
[2023-06-18 02:57] LABS: Blood Urea Nitrogen 89 mg/dl (7-17); Calcium 9.3 mg/dl (8.4-10.2); Carbon Dioxide 26 mmol/L (22-30); Chloride 88 mmol/L (98-107); Estimated Creatinine Clearance 6 ml/min; Glucose 100 mg/dl (70-99); Potassium 4.6 mmol/L (3.5-5.1); Sodium 134 mmol/L (135-145); Triglycerides 142 mg/dl (10-149); eGFR 4.07
[2023-06-18 03:10] LABS: Troponin I 0.153 ng/ml
[2023-06-18] MEDS: FLUSH (NSS) 2 FLUSH IV ×2 (03:14→04:28)
[2023-06-18 03:26] LABS: TSH Reflex To Free T4 3.43 uIU/ml (0.47-4.68)
--- NOTE | 2023-06-18 03:40 | W.PN.UPDATE ---
Update Note
Progress Note Update
Arterial line
Procedure: left radial arterial line placement
Consent for operation or procedure: Emergent need due to patient condition - need for invasive monitoring per protocol
Indications: Hemodynamic monitoring
After properly positioning the patient's wrist in the standard fashion, the site was prepped and draped in a sterile fashion. Next, the radial artery was entered, noting bright red, pulsatile flow. A guidewire was easily inserted, the needle
removed, and the catheter was then placed using the Seldinger technique. The guidewire was removed, with good flow present. The catheter was then connected to the transducer with a good waveform noted. The catheter was secured with an occlusive
dressing was placed after properly cleaning and prepping the site.
Complications: The patient tolerated the procedure well and no complications were noted.
Estimated Blood Loss: minimal
Plan: Arterial line to remain in place for hemodynamic monitoring.
[2023-06-18] MEDS: ATIVAN 1 MG IV ×2 (05:29→17:18)
--- NOTE | 2023-06-18 05:30 | PTCARENOTE ---
Pt arrived from ED approx 0040. Pt intubated on ventilator on 30mcg/kg/min Propofol and 1mg/min Amiodarone. Pt started getting agitated with care, TIAGO Recinos ordered Fentanyl bolus/infusion. Pt's sister, Hui, at bedside. Pt is AAOself, will nod
head intermittently seemingly appropriately. Telemetry rhythm reveals SR-ST w prolonged QT, HR 100's, no edema, palpable peripheral pulses, knee high SCDs per order. Pt ordered Cardene, infusion was off upon arrival from ED but needed to be
restarted shortly after arrival to ICU per order parameters. Amiodarone infusion received at 1 mg/min. #7.5 ETT secured to center lip at 22cm, vent settings 16/400/50%/+5, pox 96-100%. Lung sounds decreased throughout, suctioned pt orally and via
ETT for small amount thick clear sputum. +BS, abdomen soft nontender, NPO maintained. OGT in place upon arrival from ED, tube found coiled in pt's mouth. OGT removed and attempted to reinsert via OG, unsuccessful. RN inserted salem L nare, LIWS with
small amount green output. Anuric. R FA AVF +b/t. R EJ in place, capped. R femoral line with Amio, Cardene, Propofol and Fentanyl. Reviewed pt's status and labs with TIAGO Recinos. INGOT WEIGHER place L radial A-line. Reviewed pt status with pt's sister, Hui.
B/L wrist restraints placed for pt safety. Will monitor closely.
[2023-06-18 05:49] LABS: B.E. -0.3 mmol/L; O2 Saturation % 98.7 % (94-98); PCO2 37 mmHg (32-35); PO2 150 mmHg (83-108); pH 7.42 (7.35-7.45)
[2023-06-18 05:58] LABS: Hematocrit 33.6 % (37.0-47.0); Hemoglobin 11.4 g/dL (12.0-16.0); Mean Corp Hgb Conc. 33.9 g/dL (33.0-37.0); Mean Corpuscular Hgb 28.3 pg (27.0-31.0); Mean Corpuscular Volume 83.4 fL (81.0-99.0); Mean Platelet Volume 9.4 fL (7.4-10.4); Platelet Count 132 10^3/uL (130-400); Red Blood Cell Count 4.03 10^6/uL (4.20-5.40); White Blood Cell Count 10.9 10^3/uL (4.8-10.8)
[2023-06-18] MEDS: DIPRIVAN 100 IV ×3 (06:01→23:57)
[2023-06-18 06:22] LABS: Blood Urea Nitrogen 91 mg/dl (7-17); Carbon Dioxide 20 mmol/L (22-30); Chloride 88 mmol/L (98-107); Estimated Creatinine Clearance 5 ml/min; Glucose 94 mg/dl (70-99); Magnesium 2.6 mg/dl (1.6-2.3); Phosphorus 12.9 mg/dl (2.5-4.5); Potassium 4.9 mmol/L (3.5-5.1); Sodium 133 mmol/L (135-145); eGFR 3.86
--- NOTE | 2023-06-18 07:46 | CON.INTV ---
Consultation
Consultation Request
Date/Time Consultation Requested: 06/17
Date/Time Consultation Performed: 06/17
Reason for Consultation: Critical care
Medical History
-
History of Present Illness:
History obtained from the chart and from sister at bedside. Patient is intubated and unable to provide history. Patient is a 38-year-old female with history of end-stage renal disease on hemodialysis, lupus, heart failure, hypertension, follows
nephrology in [place] at [place], who was apparently visiting her sister. Her last day of dialysis was Sunday and she proceeded to drive down to [facility]. She had some mild abdominal discomfort and emesis on Sunday prior to
admission. However she had another episode of hematemesis, mental status changes and her sister called 911. Upon arrival to [facility], she was lethargic, poorly responsive and ventricular tachycardia with pulse. She was given calcium,
sodium bicarbonate without improvement. She was intubated in the ED, underwent cardioversion to sinus rhythm. She was started on amiodarone therapy and nicardipine due to significant hypertension. She was admitted to ICU for further management
The patient apparently had recent upper endoscopy 1 week ago [place]. There was an abnormality. This was done for unclear reasons. Patient cannot communicate findings
She also sees cardiology in the past
Patient also admits to weight loss, unintentional
.
PMH: Hypertension, lupus, end-stage renal disease on hemodialysis right upper extremity AV fistula, history of nephrectomy, lupus nephritis, GERD, history of renal transplant with explanted kidney due to failure, history of peritoneal dialysis
catheter in the past, removed
Past Medical History
Past Medical History: None (See above)
Past Surgical History: None (See above)
Social History
Tobacco: Smoker (Occasional, social smoker)
Alcohol: Occasional (Rare)
Drug: None
Personal: Single
Living: Alone
Employment: Not Employed
Family History
Family History: Other (Mother of HIV/AIDS in the fifth decade, no children)
Allergies / Home Medications
Allergies
Allergy/AdvReac Type Severity Reaction Status Date / Time
No Known Allergies Allergy Unverified 03/05/22 12:32
Home Medications
�Medication �Instructions �Recorded �Confirmed �Last Taken �Type
aspirin 81 mg tablet,delayed 81 mg PO DAILY 03/05/22 06/17/23 03/04/22 History
release
dicyclomine 20 mg tablet 20 mg PO TIDPRN PRN spasms 03/05/22 06/17/23 Unknown History
hydralazine 100 mg tablet 100 mg PO TID 03/05/22 06/17/23 03/04/22 History
nifedipine 60 mg tablet,extended 60 mg PO BID 03/05/22 06/17/23 03/04/22 History
release 24 hr
oxycodone 5 mg tablet 5 mg PO BIDPRN PRN severe pain 03/05/22 06/17/23 Unknown History
pantoprazole 40 mg tablet,delayed 40 mg PO DAILY 03/05/22 06/17/23 03/04/22 History
release
clonidine HCl 0.1 mg tablet 0.1 mg PO TID 06/17/23 06/17/23 Unknown History
gabapentin 100 mg capsule 100 mg PO DAILY PRN Headache 06/17/23 06/17/23 Unknown History
hydroxyzine HCl 50 mg tablet 50 mg PO TID PRN itching 06/17/23 06/17/23 Unknown History
labetalol 300 mg tablet 300 mg PO TID 06/17/23 06/17/23 Unknown History
losartan 100 mg tablet 100 mg PO DAILY 06/17/23 06/17/23 Unknown History
Review of Systems
-
Unable to Obtain full review of systems at this time due to: Acuity
History Source: Patient and Family
Vitals / Labs / Diagnostic Testing
Vital Signs
Temp Pulse Resp BP Pulse Ox
98.3 F 76 21 134/85 99
06/18/23 07:26 06/18/23 06:00 06/18/23 01:30 06/18/23 03:00 06/18/23 07:21
Lab Data
06/18/23 05:40
06/18/23 05:40
Laboratory Results
06/17/23 06/18/23 06/18/23
21:05 00:15 05:40
PT 13.6
INR 1.05
APTT 36.3 H
pH Cancelled 7.42
pCO2 Cancelled 37 H
pO2 Cancelled 150 H
HCO3 Cancelled 24.0
O2 Delivery Level Cancelled
Diagnostic Testing:
Physical Exam
-
HEENT: Normocephalic, Anicteric and Other (Left upper extremity A-line, right upper extremity AV fistula)
Cardiovascular: S1/S2, Regular Rhythm, Murmur (n) and Rub (n)
Respiratory: Wheeze (n), Rales (n), Rhonchi (n), Non-Labored Respirations and Other (ET tube)
GI: Soft, Non Distended and Non Tender
Neurology: Awake, Alert and Other (Moving all extremities, following commands)
Skin: Other (No clubbing, no rash)
General: Comfortable
Assessment
-
38-year-old female with complex medical history including end-stage renal disease on hemodialysis, history of lupus nephritis, hypertensive emergency, presents with nonspecific abdominal discomfort 5/4, hematemesis, lethargy. Upon arrival to
[facility], electively intubated, cardioverted for ventricular tachycardia (pulse intact). Patient also started on Cardene drip due to hypertension. Now admitted to ICU for further management 06/18/2023
VDRF, intubated 06/17/2023
Lethargy, airway protection
Ventricular tachycardia
Status post cardioversion in the ED
Prolonged QT
Hypertensive urgency/emergency
Requiring Cardene drip
Bibasilar groundglass infiltrates
Questionable aspiration
Hematemesis, nausea/emesis x 48 hours
Recent EGD 1 week ago in [place], details unclear
Unintentional weight loss
Mild transaminitis
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
ESRD -� On HD Sunday/Sunday/Sunday
Right upper extremity AV fistula
[facility], nephrology
History of renal transplant, failed
HTN-on multiple agents
h/o nephrectomy
Lupus nephritis
Lt forearm AVF
Anemia of CKD
Hyperphosphatemia
GERD
Plan/recommendations
At this time, patient is critically ill.
She is arousable, follows commands. Moves all extremities.
Completed hemodialysis this morning
She remains on Protonix twice a day she remains on amiodarone. Prolonged QT is noted
Recent upper endoscopy [place] 1 week ago, details unclear
Hypertensive urgency also noted, required Cardene/nitroglycerin drip. Now weaned off
Moving forward
Remains on volume-cycled ventilation
AC 16/400/5/40%
Ppk 24, Plat 21
Will attempt to wean to CPAP depending on how she does, currently following commands
Bibasilar groundglass changes noted per abdominal imaging
ET tube appropriate.
Continue cefepime, vancomycin for now
Check tracheal culture
Prolonged QT noted
Patient not on any prolonged QT agents as outpatient
Present on amiodarone, propofol
Follow electrolytes
Wean off propofol as able
Hemodynamically stable, not requiring pressors.
Off nicardipine gtt, resume home meds as able. RASHMI inhibitor being held
Nephrology following
Hemodialysis today, hyperkalemia noted
Cardiology following, echocardiogram pending
HD today
History of renal transplant, explant in the past
History of lupus nephritis
Will need to get additional history postextubation
Patient with complex history
Hematemesis noted. Remains on Protonix twice a day
Patient with recent upper endoscopy 1 week ago in [place]
GI following
Hope for extubation later today, will need to coordinate with GI
Unclear whether needs repeat EGD
Mild transaminitis
Check lipase
Patient states she has history of liver disease but cannot communicate effectively, currently intubated
CBC stable, no signs of bleeding or coagulopathy.
Coagulation studies normal, platelets normal
Follow hemoglobin
DVT prophylaxis as assessed based on risk, including mechanical SCDs
INR normal
No prior h/o diabetes or thyroid disease
Monitor accuchecks PRN/SS coverage if needed
The above plan was reviewed at length with critical care nursing, pharmacy, respiratory care, case management
Updated sister at length at bedside
TCCT 40 min
Diagnostic Data
CXR - Moderate right perihilar pneumonia extending into the mid and lower portions of the right lung
Reports and relevant images were personally reviewed.
--- NOTE | 2023-06-18 08:04 | CON.CAR ---
Addendum entered and electronically signed by Ramesh Sanches MD 06/18/23 09:34:
38 yo female with PMH of ESRD on HD, in setting of SLE, multi-drug resistant HTN, prolonged QT (prior EKG 2022 with mildly prolonged QTc) is admitted following presentation with VT. She started to feel unwell over the weekend. Nausea/vomiting.
Possible hematemesis. On Sunday: lethargic, minimally responsive, so sister called 911. Upon arrival to ED: weak pulses, rhythm is V, then possible seizure activity. Intubated, then cardioverted, and amiodarone drip started. Strips in chart.
Brief junctional rhythm after. Now back in sinus with prolonged QT. Potassium on arrival 6.3. Also noted hypothermia, mildly elevated WBC, imaging c/w bibasilar PNA.
# VT
-h/o mildly prolonged QT
-now with hyperkalemia on admission, and more significantly prolonged QT
-will check echo and continue amiodarone
-tele
-will also consult EP this admission
# Hyperkalemia
-urgent HD
-seems like may be a chronic issue, and nephrology is considering Lokelma
# Sepsis, PNA, possible aspiration
-intubated, sedated, and on broad spectrum Abx
# Multi-drug resistant HTN
-currently on cardene drip
Original Note:
Consultation
Consultation Request
Date/Time Consultation Requested: 06/18/2023 01:15
Date/Time Consultation Performed: 06/18/2023 07:45
Requesting Provider: Dr. Milligan
Performing Provider: BRODY Flood for Dr. Sanches
Reason for Consultation: VT, Hyperkalemia
Medical History
-
Chief Complaint: Nausea and vomiting
History of Present Illness:
Chen Honeycutt is a 38-year-old female with end-stage renal disease on hemodialysis, hypertension, and SLE who presented to the emergency department with a chief complaint of nausea and vomiting. She is visiting from [place]. She completed
hemodialysis on Sunday as usual. Post hemodialysis session she had a headache which is not unusual for her. She drove to [place]. Sunday she had mild abdominal discomfort and bilious emesis. Her symptoms seem to improve with antacids.
Late Sunday evening on arrival she had recurrent abdominal pain with episodes of nausea and vomiting which appeared to be bright red. She became less responsive and her sister called 911. She was found to be in ventricular tachycardia by EMS.
She did have peripheral pulses but was lethargic. She was given boluses of calcium and sodium bicarbonate without improvement. She underwent intubation and cardioversion with evangelical of sinus rhythm. She did have some transient bradycardia.
She was started on an amiodarone infusion for ventricular tachycardia and nicardipine for blood pressure management. She has recently been having issues with hyperkalemia. She is unable to contribute to this HPI due to her intubation and sedation.
Past Medical History
Past Medical History: HTN, Renal Failure and Other (SLE)
Past Surgical History: Cholecystectomy and Other (Kidney transplant status post explant)
Social History
Tobacco: Other (Unable to obtain)
Alcohol: Other (Unable to obtain)
Drug: Other (Unable to obtain)
Family History
Family History: Unable to Obtain
Allergies / Home Medications
Allergy/AdvReac Type Severity Reaction Status Date / Time
No Known Allergies Allergy Unverified 03/05/22 12:32
�Medication �Instructions �Recorded �Confirmed �Type
aspirin 81 mg tablet,delayed 81 mg PO DAILY 03/05/22 06/17/23 History
release
dicyclomine 20 mg tablet 20 mg PO TIDPRN PRN spasms 03/05/22 06/17/23 History
hydralazine 100 mg tablet 100 mg PO TID 03/05/22 06/17/23 History
nifedipine 60 mg tablet,extended 60 mg PO BID 03/05/22 06/17/23 History
release 24 hr
oxycodone 5 mg tablet 5 mg PO BIDPRN PRN severe pain 03/05/22 06/17/23 History
pantoprazole 40 mg tablet,delayed 40 mg PO DAILY 03/05/22 06/17/23 History
release
clonidine HCl 0.1 mg tablet 0.1 mg PO TID 06/17/23 06/17/23 History
gabapentin 100 mg capsule 100 mg PO DAILY PRN Headache 06/17/23 06/17/23 History
hydroxyzine HCl 50 mg tablet 50 mg PO TID PRN itching 06/17/23 06/17/23 History
labetalol 300 mg tablet 300 mg PO TID 06/17/23 06/17/23 History
losartan 100 mg tablet 100 mg PO DAILY 06/17/23 06/17/23 History
Review of Systems
-
Unable to obtain full review of systems at this time due to: Patient Intubation
Physical Exam
Vital Signs
Temp Pulse Resp BP Pulse Ox
98.3 F 76 21 134/85 95
06/18/23 07:26 06/18/23 06:00 06/18/23 01:30 06/18/23 03:00 06/18/23 08:00
Lab Results
06/18/23 05:40
06/18/23 05:40
Troponin I 0.153 ng/ml H* D 06/18/23 02:31
Physical Exam
General: Well Developed, No Apparent Distress, Comfortable and Intubated
HEENT: Normocephalic, Anicteric and Moist Mucous Membranes
Respiratory: Clear and Other (Mechanical ventilation)
Cardiac: S1/S2; Negative Peripheral Edema
Breast: Deferred by me
GI: Soft, Non Tender, Non Distended and Normal Bowel Sounds
Rectal: Deferred by Provider
Genito-urinary: No Costovertebral Tender
Musculoskeletal: No Clubbing, No Cyanosis and No Edema
Skin: Warm and Dry
Neuro: Sedated
Hematologic/Lymphatic: No Lymphadenopathy
Psych: Calm
Impression / Plan
-
Sepsis
-Remains intubated and sedated
-CT with bilateral pneumonia
Ventricular tachycardia
Long QT, LQTS type II versus LQTS type III
-Prolonged QTc on EKG 2022
-On amiodarone drip
Abnormal troponin, likely nonischemic myocardial injury in the setting of ESRD and critical illness
-Trend to peak
-Trend EKGs
Hypertension, on Cardene
Hyperkalemia, per nephrology as she has end-stage renal disease on dialysis
ESRD on HD, prior transplant now explanted due to rejection
SLE, fasting lipid panel in am
Data Reviewed
-
EKG: Report Reviewed by me (Sinus rhythm with sinus arrhythmia, rate 69 with prolonged QT [559ms]; a junctional rhythm, rate 41 prolonged QT [556ms]; sinus rhythm with prolonged QT)
Radiology: Report Reviewed by me (CXR: The endotracheal tube is well-positioned in the midthoracic trachea. Bilateral lower lobe pneumonia.)
CT Scan: Report Reviewed by me (Abd/Pel: Diffuse confluent groundglass opacity is noted at the lung bases. There is mild to moderate cardiomegaly. Cannot exclude pulmonary edema. Posterior bibasilar pneumonia, left greater than right; HEAD: No
acute intracranial abnormality noted.)
Labs: Labs Reviewed by me
--- NOTE | 2023-06-18 08:07 | W.CON.NEPH ---
Consultation
-
Date/Time Consultation Requested: 06/18/2023 7:00 AM
Date/Time Consultation Performed: 06/18/2023 8:00 AM
Requesting Provider: Srini
Performing Provider: Dr. Adams
Reason for Consultation: End-stage renal disease
Medical History
-
Chief Complaint: End-stage renal disease
History of Present Illness:
The patient is a 38-year-old female with a past medical history of end-stage renal disease dialyzed on Sunday at an outside dialysis unit. She is a history of multidrug resistant hypertension maintained on clonidine hydralazine
labetalol and nifedipine. She is maintained on proton pump inhibitor for her history of GERD. The patient lives in [facility] and is visiting her sister here in [facility]. She completed her usual HD session on Sunday and drove to [place]. She complained
of a headache on Sunday, which is not unusual for her s/p HD. On Sunday, patient complained of mild abdominal discomfort and had several episodes of non-bloody, bilious emesis. She took some antacids and her symptoms seemed to improve.
Yesterday patent had recurrent abdominal discomfort and further episodes of N/V - this time with some noted bright red blood in the emesis. She continued to feel poorly throughout the day.
Her sister noted that she appeared suddenly very pale and clammy and seemed less responsive. She called 911 at this point and patient was brought to the ED by EMS.
On arrival to the ED, patient was noted to be in ventricular tachycardia. Her potassium was 6.3. She had pulses but was lethargic / poorly responsive.
Patient received initial bolus doses of calcium and sodium bicarbonate without prompt improvement. She underwent intubation and cardioversion here in the ED with return to a sinus rhythm.
There was some transient bradycardia but this quickly resolved.
Patient was placed on amiodarone infusion as well as nicardipine gtt for marked hypertension.
Sister states that patient typically received HD on schedule. No recent missed sessions.
She is on a strict fluid restriction to manage her volume and has had issues recently with elevated potassium levels.
Her client support administrator in [facility] is Dr. Alexandra Brian .
Past Medical History
1. History of nephrectomy, solitary kidney.
2. ESRD on dialysis MWF at [place].
3. Hypertension on multiple medications.
4. Lupus nephritis.
5. right forearm AV fistula.
6. Anemia of CKD.
7. Hyperphosphatemia
GERD.
Social History
Tobacco: Non-Smoker
Alcohol: None
Family History
No CKD
Allergies / Home Medications
Allergy/AdvReac Type Severity Reaction Status Date / Time
No Known Allergies Allergy Unverified 03/05/22 12:32
�Medication �Instructions �Recorded �Confirmed �Type
aspirin 81 mg tablet,delayed 81 mg PO DAILY 03/05/22 06/17/23 History
release
dicyclomine 20 mg tablet 20 mg PO TIDPRN PRN spasms 03/05/22 06/17/23 History
hydralazine 100 mg tablet 100 mg PO TID 03/05/22 06/17/23 History
nifedipine 60 mg tablet,extended 60 mg PO BID 03/05/22 06/17/23 History
release 24 hr
oxycodone 5 mg tablet 5 mg PO BIDPRN PRN severe pain 03/05/22 06/17/23 History
pantoprazole 40 mg tablet,delayed 40 mg PO DAILY 03/05/22 06/17/23 History
release
clonidine HCl 0.1 mg tablet 0.1 mg PO TID 06/17/23 06/17/23 History
gabapentin 100 mg capsule 100 mg PO DAILY PRN Headache 06/17/23 06/17/23 History
hydroxyzine HCl 50 mg tablet 50 mg PO TID PRN itching 06/17/23 06/17/23 History
labetalol 300 mg tablet 300 mg PO TID 06/17/23 06/17/23 History
losartan 100 mg tablet 100 mg PO DAILY 06/17/23 06/17/23 History
Review of Systems
-
Unable to obtain full review of systems at this time due to: Patient Intubation
All other systems: Negative unless noted
Musculoskeletal: Other (Right forearm AV fistula)
Physical Exam
Vital Signs
Vital Signs
Temp Pulse Resp BP Pulse Ox
98.3 F 80 21 134/85 95
06/18/23 07:26 06/18/23 08:00 06/18/23 01:30 06/18/23 03:00 06/18/23 08:00
Lab Results
WBC 10.9 10^3/uL (4.8-10.8) H 06/18/23 05:40
RBC 4.03 10^6/uL (4.20-5.40) L 06/18/23 05:40
Hgb 11.4 g/dL (12.0-16.0) L 06/18/23 05:40
Hct 33.6 % (37.0-47.0) L 06/18/23 05:40
Plt Count 132 10^3/uL (130-400) D 06/18/23 05:40
Sodium 133 mmol/L (135-145) L 06/18/23 05:40
Potassium 4.9 mmol/L (3.5-5.1) 06/18/23 05:40
Chloride 88 mmol/L (98-107) L 06/18/23 05:40
Carbon Dioxide 20 mmol/L (22-30) L 06/18/23 05:40
BUN 91 mg/dl (7-17) H 06/18/23 05:40
Creatinine 11.7 mg/dL (0.6-1.0) H* 06/18/23 05:40
eGFR 3.86 06/18/23 05:40
Glucose 94 mg/dl (70-99) 06/18/23 05:40
Calcium 9.0 mg/dl (8.4-10.2) 06/18/23 05:40
Phosphorus 12.9 mg/dl (2.5-4.5) H 06/18/23 05:40
Albumin 4.6 g/dl (3.5-5.0) 06/17/23 21:05
Physical Exam
General: Intubated sedated
HEENT: ET tube down oropharyngeal airway dentition Intact, Facial Symmetry, Neck Supple, Neck: Trachea Midline, No JVD and No Thyromegaly, no Bruits
Respiratory: Clear to auscultation bilaterally with mechanical lung excursion
Cardiac: S1/S2 and Regular Rate/Rhythm
Breast: Deferred by me
Abdomen: Soft, Nontender, Nondistended, Normal Bowel Sounds and No Hepatosplenomegaly
Rectal: Deferred by Provider
Genito-urinary: No Costovertebral Tenderness
Extremities: No Clubbing, No Cyanosis and No Edema
Skin: No Rash or open lesions, multiple tattoos
Neuro: Unobtainable due to sedated status on
Hematologic/Lymphatic: No Cervical Lymphadenopathy, No Submandibular Lymphadenopathy and No Supraclavicular Lymphadenopathy
Psych: Unobtainable as patient is on vent
Vascular: plus 1 pedal and radial pulses
Vascular Access: AVF (Left)
Data Reviewed
-
Radiology: Image Personally Visualized and interpreted (Chest x-ray reviewed by me no evidence of CHF)
CT Scan: Report Reviewed by me (CT of chest and abdomen reviewed)
Medical Tests (Nuc Med, Echo etc): Image Personally Visualized and interpreted (EKG report personally reviewed sinus rhythm no hyperacute T waves)
Labs: Labs Reviewed by me (CBC BMP)
Old Records: Reviewed (Reviewed previous nephrology consult ESRD February 2022)
Assessment/Plan
-
Impression:
Ventricular tachycardia status postcardiac arrest
Nausea vomiting on presentation
Hyperkalemia
End-stage renal disease Sunday
Multidrug-resistant hypertension
History of nephrectomy
History of lupus nephritis
Left forearm AV fist
GERD
Plan:
HD today
Fluid restriction once PO
May benefit from Lokelma as outpatient for recurrent hyperkalemia despite dialysis
Restrict potassium restrict
Maintain current antihypertensives for uncontrolled hypertension in addition to attempt dry weight reduction on dialysis
Patient is critically ill intubated following cardiovascular arrest
45 minutes critical care time spent with patient
Total Time Spent with Patient (in minutes): 45
--- NOTE | 2023-06-18 08:27 | W.PN.NEPH.HD ---
Assessment
-
Patient seen on HD
Systolic blood pressure at 155 at current UF
Patient remains sedated and intubated
Progress Note - Hemodialysis
-
Date of Service: June 18, 2023
Duration: 30 minutes and 3 hours
Potassium Bath: 2
Calcium Bath: 2.5
Opti-Dialyzer: 160
Ultrafiltration: Other (2.5kg)
Blood Flow: 400
Dialysate Flow: 600
Heparin: none
EPO: none
[2023-06-18 08:41] LABS: Troponin I 0.178 ng/ml
--- NOTE | 2023-06-18 08:58 | CON.GI ---
Addendum entered and electronically signed by Danielle Fritz MD 06/18/23 13:58:
I saw and examined the patient.
The [employer] or PA's note was reviewed and I agree with the note.
Comment: 38-year-old female past medical history of lupus nephritis, end-stage renal disease on dialysis with chronic GI issues follows in [place] with recent endoscopy and colonoscopy last week. She was having abdominal discomfort and headache.
She had some bili emesis with some blood on discussion with her sister at bedside it was about a capful. There was questionably blood seen in the ER as well but report when I discussed with the nurse from the ICU had green bile was obtained from
the NGT from the stomach. She was noted to be in V. tach with a potassium of 6.3 and was intubated and cardioverted. Her hemoglobin has been stable and repeat has been 12. Her LFTs are mildly elevated as well to be expected given her multitude of
medical issues at this time.
At this time, recommend Protonix 40 IV twice daily. Upon discharge can decrease down to daily. Monitor hemoglobin. If she has ongoing hematemesis or drop in hemoglobin please reconsult GI. I would not pursue upper endoscopy at this time given
hemoglobin of 12 and her multiple other medical issues at this time. She would be high risk for endoscopy. Please also reconsult GI if her LFTs continue to rise I suspect they should downtrend. I discussed with the sister at bedside, she should
follow-up with her chronic GI issues with her home GI doctor.
I discussed with the ICU attending GI will sign off, please call with questions.
Original Note:
Consultation
-
Date/Time Consultation Requested: 06/18/23 0113
Date/Time Consultation Performed: 06/18/23 0840
Requesting Provider: Dr. Milligan
Performing Provider: Dr. Fritz/BRODY Rodgers
Reason for Consultation: hematemesis
Medical History
Chief Complaint / HPI
Chief Complaint: CP
History of Present Illness:
38-year-old female with past medical history of lupus nephritis, end-stage renal disease on hemodialysis Sunday, hypertension, GERD who lives in [facility] who came down after her hemodialysis on Sunday to visit her sister in
[facility]. Information obtained from the chart as patient is intubated and sedated. Per record patient and discussion with RN, on Sunday patient complained of abdominal discomfort and headache. Apparently this is not unusual for her after
hemodialysis. She started to have bilious emesis took some Tums then appeared pale clammy less responsive 911 was called. Per RN patient had apparently episode of bloody emesis as well. Here she had an NG tube placed that had bilious green fluid
obtained from stomach. On arrival in the emergency room patient was noted to be in V. tach. Her potassium was 6.3. She was intubated and cardioverted. Return to sinus rhythm. She was started on amiodarone drip as well as nicardipine drip for
hypertension. We are asked to evaluate for hematemesis prior to arrival in the emergency department. Patient's hemoglobin is currently 11.4 down from 13.0. Per discussion with RN patient has not had any bowel movements since arrival. Patient has
been placed on pantoprazole 40 mg IV twice daily.
Past Medical History
Past Medical History: GERD, HTN, Renal Failure (on HD --, Hx PD, Renal transplant) and Other (PNA, Lupus, Migraines, chronic hyperkalemia)
Past Surgical History: Cholecystectomy and Other (kidney transplant, explanted due to rejection, PD catheter, RUE AV fustula)
Social History
Tobacco: Smoker (rare/social)
Alcohol: Occasional (rare)
Drug: None
Family History
Family History: Unable to Obtain
Allergies / Home Medications
Allergy/AdvReac Type Severity Reaction Status Date / Time
No Known Allergies Allergy Unverified 03/05/22 12:32
�Medication �Instructions �Recorded
aspirin 81 mg tablet,delayed 81 mg PO DAILY 03/05/22
release
dicyclomine 20 mg tablet 20 mg PO TIDPRN PRN spasms 03/05/22
hydralazine 100 mg tablet 100 mg PO TID 03/05/22
nifedipine 60 mg tablet,extended 60 mg PO BID 03/05/22
release 24 hr
oxycodone 5 mg tablet 5 mg PO BIDPRN PRN severe pain 03/05/22
pantoprazole 40 mg tablet,delayed 40 mg PO DAILY 03/05/22
release
clonidine HCl 0.1 mg tablet 0.1 mg PO TID 06/17/23
gabapentin 100 mg capsule 100 mg PO DAILY PRN Headache 06/17/23
hydroxyzine HCl 50 mg tablet 50 mg PO TID PRN itching 06/17/23
labetalol 300 mg tablet 300 mg PO TID 06/17/23
losartan 100 mg tablet 100 mg PO DAILY 06/17/23
Review of Systems
-
Unable to obtain full review of systems at this time due to: Other (patient intubated and sedated)
Vital Signs
Temp Pulse Resp BP Pulse Ox
98.3 F 80 21 134/85 95
06/18/23 07:26 06/18/23 08:00 06/18/23 01:30 06/18/23 03:00 06/18/23 08:00
Physical Exam
Exam
General: Intubated
Respiratory: Clear (Anterior)
Cardiac: S1/S2 and Murmur
GI: Soft, Non Tender, Non Distended and Normal Bowel Sounds
Musculoskeletal: No Edema
Skin: Warm, Dry and Other (Tattoos and piercings)
Neuro: Sedated and Other (Some spontaneous movements of arms)
Results
WBC 10.9 10^3/uL (4.8-10.8) H 06/18/23 05:40
Hgb 11.4 g/dL (12.0-16.0) L 06/18/23 05:40
Hct 33.6 % (37.0-47.0) L 06/18/23 05:40
MCV 83.4 fL (81.0-99.0) 06/18/23 05:40
Plt Count 132 10^3/uL (130-400) D 06/18/23 05:40
PT 13.6 Sec (11.4-14.6) 06/17/23 21:05
INR 1.05 06/17/23 21:05
APTT 36.3 Sec (23.4-35.0) H 06/17/23 21:05
Sodium 133 mmol/L (135-145) L 06/18/23 05:40
Potassium 4.9 mmol/L (3.5-5.1) 06/18/23 05:40
Chloride 88 mmol/L (98-107) L 06/18/23 05:40
Carbon Dioxide 20 mmol/L (22-30) L 06/18/23 05:40
BUN 91 mg/dl (7-17) H 06/18/23 05:40
Creatinine 11.7 mg/dL (0.6-1.0) H* 06/18/23 05:40
Calcium 9.0 mg/dl (8.4-10.2) 06/18/23 05:40
Total Bilirubin 1.8 mg/dl (0.2-1.3) H 06/17/23 21:05
AST 86 U/L (14-36) H 06/17/23 21:05
ALT 57 U/L (0-35) H 06/17/23 21:05
Alkaline Phosphatase 211 U/L (38-126) H 06/17/23 21:05
Lipase 182 U/L (23-300) 06/17/23 21:05
Diagnostic Image Results:
Chest x-ray 06/17/2023:
1. The endotracheal tube is well-positioned in the midthoracic trachea.
2. Bilateral lower lobe pneumonia.
CT abdomen and pelvis without IV or oral contrast 06/17/2023:
IMPRESSION:
Diffuse confluent groundglass opacity is noted at the lung bases. There is mild to moderate cardiomegaly. Cannot exclude pulmonary edema.
Posterior bibasilar pneumonia, left greater than right.
Severe renal atrophy.
Minor ascites. No focal collection or abscess. No free air.
Moderate gaseous distention of the stomach. No dilated bowel loops or evidence of obstruction. Mild colonic fecal burden.
CT head 06/17/2023:
No acute intracranial abnormality noted.
Chest x-ray/portable 06/18/2023:
Placement of an enteric tube extending below the diaphragm with the tip excluded from the [id number] but likely within the stomach.
Stable position of the endotracheal tube.
Redemonstration of a left lower lobe airspace opacity. Subtle right basilar opacity with some improved aeration from previous exams. No pleural effusion or pneumothorax. The cardiomediastinal silhouette is stable
Prior GI Procedures:
EGD: Unknown
Colonoscopy: Unknown
Assessment / Plan
-
38-year-old female with past medical history of lupus nephritis, end-stage renal disease on hemodialysis Sunday, hypertension, GERD who lives in [facility] who came down after her hemodialysis on Sunday to visit her sister in
[facility]. Information obtained from the chart as patient is intubated and sedated. Per record patient and discussion with RN, on Sunday patient complained of abdominal discomfort and headache. The patient initially had bilious emesis
followed by bright red blood hematemesis. The patient became pale diaphoretic and almost unresponsive 911 was called. On arrival to the emergency room patient was in V. tach. She was intubated cardioverted return to sinus rhythm started on
amiodarone and nicardipine drip. We were asked to evaluate for hematemesis prior to arrival in the emergency department. Patient's hemoglobin is currently 11.4 down from 13.0. NG tube with green bilious drainage. No bowel movement since arrival.
Patient is maintained on pantoprazole 40 mg IV twice daily. Patient is currently intubated, sedated and on hemodialysis.
Impression:
Episode of hematemesis following bilious emesis x 1 day, None further currently with NG tube with bilious drainage
V. tach status post cardioversion
Hypertension
Hyperkalemia
Prolonged QTc
End-stage renal disease on hemodialysis
Lupus nephritis
VDRF
Pneumonia seen on CT imaging
Elevated LFTs, possible infectious versus low flow state versus cardiac
Constipation seen on CT imaging, patient on chronic narcotics as outpatient regimen
Plan:
-Continue Pantoprazole 40 mg IV BID
-Trend Hgb
-Trend LFTs although expect them to go higher before they go lower given events
-If LFTs continue to rise continue trending platelets and INR
-When oral medications started would consider bowel regimen
-Further recommendations to follow
Data Reviewed
-
Radiology: Report Reviewed by me
CT Scan: Report Reviewed by me
Old Records: Reviewed
-
-
Thank you for consultation and allowing me to participate in the patient's care. Please call the patient relations manager GI physician during the after hours with any questions or concerns.
--- NOTE | 2023-06-18 09:08 | PTCARENOTE ---
0700 patient received in bed intubated and intubated. Restraints to b/l UE to prevent patient from pulling ETT; ETT: 7.5/22cm left lip; Vent : AC 16/400/40%/+5; RT Femoral TL line: Amio 05./16.7; Propofol 40/12.4; Fentanyl 75/7.5; Dialysis in
progress schedule for 3.5 hrs; RT AV fistula. left A/line Zero per protocol. HOB elevated. N-J tube placement VERIFIED BY CHEST x-RAY; n-j at low-intermittent suction no output at this time . HOB elevated pt sedated. Updates provided to patient's
sister who lives in [place]
[2023-06-18 09:50] LABS: Glycohemoglobin (HgbA1c) 4.8 % (4.0-5.6)
--- NOTE | 2023-06-18 10:16 | W.PN.HOSP.TC ---
Today's Communication/Plan
-
Continue intubation as per last putter away
Continue antibiotics and PPI
Continue Amiodarone
Assessment / Plan
Assessment / Plan
Physical Exam
General: Not in acute distress
HEENT: Moist mucous membranes
Respiratory: Equal air entry bilaterally. ETT in place.
Cardiac: S1/S2, Regular Rhythm
GI: Soft, Non Tender, Non Distended and Normal Bowel Sounds
Musculoskeletal: No Cyanosis and No Edema
Neuro: Awake. Alert.

A/P: Patient is a 38y F with PMH significant for HTN and ESRD on HD who presents to ED in [place] with complaints of abdominal pain and N/V.
Ventricular Tachycardia
Hyperkalemia
Prolonged QTc
- Continue monitoring in ICU
- Temporizing measures performed in the ED for hyperkalemia.
- Lokelma given via OGT; however, some of this may have subsequently leaked from the tube.
- Repeat labs
- Hemodialysis as per nephrology
- Continue amiodarone for now given VT episode. Follow QT closely.
- Cardiology consulted, recommendations appreciated
ESRD on HD
Acute on Chronic Hyperkalemia
- s/p HD session on Sunday with no missed sessions.
- Followed with Dr. Alexandra Brian in [facility].
- Has apparently had recent issues with hyperkalemia and meds have been adjusted as a result.
- Would hold ARB / losartan.
- Nephrology evaluation as noted above.
- Plan for HD in the early AM.
- Though med lists are unclear, patient was previously on spironolactone and appears to currently be on losartan as noted above.
Hypertensive Emergency
Multidrug Resistant Hypertension
- BP markedly elevated in the ED after buddhism to sinus rhythm.
- Status post Nicardipine infusion
- Family notes long history of kiyxdiryx-qz-enwlbmj HTN despite multiple agents / med changes / etc.
- Adjust IV medications for now.
- Resume / restart enteral meds when appropriate.
- Nephrology input as noted above.
VDRF
Bilateral groundglass opacities on imaging
- Patient intubated in the ED for airway protection during VT treatment, cardioversion, etc.
- Maintain vent support overnight.
- Treat possible pneumonia as noted below.
- Associate Merchandiser evaluation.
- Sedation protocols.
Sepsis
Pneumonia
- CT scan shows bilateral lower lobe opacities c/w pneumonia.
- ? initial pneumonia which triggered GI symptoms, etc - versus aspiration due to recurrent N/V.
- Patient hypothermic in the ED - continue Bridget hugger as needed
- Continue Cefepime and Vancomycin
Intractable N/V
Hematemesis
- Patient with recent upper endoscopy 1 week ago in [place]
- ? primary gastroenteritis v sequelae of underlying pneumonia, etc.
- Suspect that N/V plus baseline hyperkalemia precipitated presenting events.
- Blood seen in emesis on admission is likely secondary to mucosal injury / Araceli-Zaragoza due to persistent emesis.
- IV PPI BID for now - Upon discharge can decrease down to daily.
- GI evaluation for any additional recommendations.
- OG tube to suction. Follow for any recurrent emesis or other new complaints.
- CT A/P done in the ED with no acute intra-abdominal pathology.
Abnormal LFTs
Lactic Acidosis
- Suspect this is secondary to hypoperfusion in the setting of VT.
- ? component of viral process / infection / sepsis given concurrent pneumonia.
- Follow for improvement with treatment outlined above.
History of renal transplant, explant in the past
History of lupus nephritis
DVT Prophylaxis: Subcut heparin
Code Status: Full
Intubation, Vtach needing Amiodarone, IV antibiotics, needing for monitoring and treatment in the ICU is a high risk encounter.
Anticipated Discharge: > 48 hours
Subjective/Interval History
-
Date of Service: June 18, 2023
Patient was seen and examined. She was intubated the time she was seen, but awake, extubation trial was in progress.
Objective Data
-
Labs:
Laboratory Results
06/17/23 06/18/23 06/18/23
21:05 00:15 02:31
WBC
Hgb
Hct
Plt Count
APTT 36.3 H
HCO3 Cancelled
Sodium 134 L
Potassium 4.6 D
Chloride 88 L
Carbon Dioxide 26
BUN 89 H
Creatinine 11.2 H*
Glucose 100 H
Calcium 9.3
06/18/23
05:40
WBC 10.9 H
Hgb 11.4 L
Hct 33.6 L
Plt Count 132 D
APTT
HCO3 24.0
Sodium 133 L
Potassium 4.9
Chloride 88 L
Carbon Dioxide 20 L
BUN 91 H
Creatinine 11.7 H*
Glucose 94
Calcium 9.0
Vital Signs:
Vital Signs
Temp Pulse Resp BP Pulse Ox
98.3 F 82 21 134/85 95
06/18/23 07:26 06/18/23 09:30 06/18/23 01:30 06/18/23 03:00 06/18/23 09:31
I&O
06/17/23 06/18/23 06/19/23
06:59 06:59 06:59
Intake Total 269.4 / 306.0 109.8 / 109.8
Balance 269.4 / 306.0 109.8 / 109.8
--- NOTE | 2023-06-18 10:44 | PHA.VAN.IN ---
Assessment
- Assessment
Renal Function: Patient has ESRD, on chronic Hemodialysis
Hemodialysis Schedule: MWF
Maximum Temperature: 98.3
Minimum Temperature: 94.2
Concomitant Antimicrobials: Cefepime
Plan
- Plan
Initial / Loading Dose: 1000mg on 06/16
Maintenance Regimen: 500mg on 06/17 after hemodialysis
Pharmacokinetics Vancomycin I
- -
Patient Age: 38
Patient Sex: Female
Vancomycin Day #: 1
Indication: Pulmonary/Respiratory
Requesting Provider: Selena Carrion
Pertinent Antimicrobial Allergies:
NKDA
Height / Weight:
Height 5 ft 3 in
Actual Weight 51.5 kg
Pertinent Past Medical History: ESRD on dialysis
- Vital Signs / Lab Results
Temp Pulse Resp BP Pulse Ox
98.3 F 82 21 134/85 95
06/18/23 07:26 06/18/23 09:30 06/18/23 01:30 06/18/23 03:00 06/18/23 09:31
Lab Results - Hematology
06/17/23 06/18/23
21:05 05:40
WBC 11.2 H 10.9 H
Lab Results - Chemistry
06/17/23 06/18/23 06/18/23
21:05 02:31 05:40
BUN 78 H 89 H 91 H
Creatinine 11.1 H* 11.2 H* 11.7 H*
Estimated Creat Clear 6 5
Albumin 4.6
06/17/23 06/18/23 06/18/23
21:04 02:31 06:00
Lactic Acid 4.1 H* 0.9 Cancelled
[2023-06-18] MEDS: NSS (PRESERVATIVE FREE) 10 ML IV ×2 (10:57→19:47)
[2023-06-18] MEDS: HEPARIN 5000 UNITS SC ×2 (10:57→19:46)
[2023-06-18] MEDS: PROTONIX IV 40 MG IV ×2 (10:57→19:46)
[2023-06-18 11:20] LABS: Vancomycin Random 10.9 ug/ml
--- NOTE | 2023-06-18 11:34 | CM ---
CM following re: discharge planning.
Discussed in rounds, reviewed pt's chart, met with pt and pt's sister owen at bedside [phone].
Pt is a 38 year old female, admitted with primary dx of Ventricular Tachycardia. Per Rounds meeting, pt intubated this morning, remains intubated, continue supportive care.
Per sister owen, pt lives with her friend in [place], 2SH, 2 steps to enter, has no children. Pt has been on outpatient HD treatment for 7 years, HD treatment center [facility], phone: [phone]; fax: [phone]. CM spoke to [facility] RN
Mary Ann, she is aware that pt is at and she is requested to fax pt's clinical to them at pt's discharge. Pt HD treatment is on MWF and pt's friend brings her to and from HD treatment. per Mary Ann, pt has been at their center for the past 2 months
and she came to them from [place].
PCP: Continuous Process Machine Operator: Dr. Ramos [phone]
Pharmacy: [facility]
D/C plan: home with resumptions of outpatient HD treatment at [facility] in [place] and family support. Sister to transport at discharge.
CM will follow with discharge plan updates as hospitalization progresses
[2023-06-18 11:43] LABS: Direct Bilirubin 1.3 mg/dl (0.0-0.4)
--- NOTE | 2023-06-18 12:15 | PTCARENOTE ---
weaning vent
patient AAO x3 Propofol and fentanyl off. pt on SPONT 8//40% Peak 14/VT 309/RR 22,. appears comfortable
[2023-06-18 12:59] LABS: Lipase 131 U/L (23-300)
[2023-06-18 13:17] LABS: Hemoglobin 12.1 g/dL (12.0-16.0)
--- NOTE | 2023-06-18 13:28 | PTCARENOTE ---
left radial A/line BP 173/98 MAP 126 Cardene restarted per protocol at 2.5 mg/hr. Vent SPONT 8/5/40% Peak 14/VT 362/RR 16. Earlier pt c/o of Anxiety Ativan adm per prn order . At this time pt asleep easy to aroused
[2023-06-18 13:29] LABS: Potassium 4.1 mmol/L (3.5-5.1)
[2023-06-18 13:46] LABS: Troponin I 0.134 ng/ml
[2023-06-18] MEDS: VANCOCIN HCL 500 MG 100 IV (14:30)
[2023-06-18 14:59] LABS: Lipase 100 U/L (23-300)
--- NOTE | 2023-06-18 15:03 | PTCARENOTE ---
Tolerating 8/5 since this am . Changed to 5/5 at 15:00 . ABG at 15:30
[2023-06-18 15:40] LABS: B.E. 7.6 mmol/L; PCO2 43 mmHg (32-35); PO2 199 mmHg (83-108); pH 7.48 (7.35-7.45)
[2023-06-18] MEDS: STERILE WATER FOR INJECTION 10 ML IV (17:20)
[2023-06-18] MEDS: MAXIPIME 1000 MG IV (17:20)
--- NOTE | 2023-06-18 17:27 | W.PN.UPDATE ---
Update Note
Progress Note Update
Patient has been stable on CPAP. ABG adequate
Unfortunately, minimal cuff leak noted with deflation
No evidence of traumatic intubation
Will give 3 doses of Decadron and reassess in the morning
Reviewed with patient, critical care nursing
Change to ASV 100%, can sedate if needed
SBT in a.m.
--- NOTE | 2023-06-18 18:07 | PTCARENOTE ---
patient had low numbers for air leak. Vent ASV # min Vol 100/+5/40% POX 96% Peak 18/260/RR 20 At this time Fentanyl 75/7.5 ml +Propofol 40/12.4; Amio 0.5 Cardene 2.5 . left A line BP 144/75 MAP 103; PO X96% rectal temp 99.5; Restraints to b/l UE +4
side rails; SCD in place HOB elevated RT femoral line TL : Propofol blue port; Blue cardene; White fentanyl and propofol RT EJ KVO with ABD sisters Hui and cathy updated
[2023-06-18] MEDS: DECADRON 10 MG IV (18:20)
--- NOTE | 2023-06-18 20:00 | PTCARENOTE ---
Received patient in bed, following commands, nodding appropriately. Denies pain, weak hand grasps bilaterally. Restraints on for patient safety. Normal sinus, 80s, no edema. Weak palpable pedal pulses bilaterally. QT/QTc monitoring on, prolonged,
aware. 7.5 ETT, 22 at the lip on the left side. ASV, minute ventilation 100%, PEEP of 5, 40% FiO2. Saturating 97%. Left nare NG tube set to low intermittent suction, rectal probe in place, normothermic. Anuric, HD done today. Skin intact. Right
femoral triple lumen with propofol gtt, fentanyl gtt, and amio gtt, see flowsheets/MAR for details. Left monica flushed, zeroed, and patent. Right EJ patent. Hourly rounds and patient safety checks ongoing.
[2023-06-18] MEDS: CORDARONE 518 MG IV (21:33)
[2023-06-18] MEDS: DECADRON 6 MG IV (23:59)
--- NOTE | 2023-06-19 00:05 | PTCARENOTE ---
Patient assessment unchanged from previous. Mouth care done and repositioned.
[2023-06-19] MEDS: SUBLIMAZE 50 MCG IV ×3 (00:17→05:22)
[2023-06-19 04:42] LABS: % Basophils 0.2 % (0-2); % Eosinophils 0.2 % (0-6); % Immature Granulocytes 0.2 % (0-0.5); % Lymphocytes 4.8 % (20.5-51.1); % Monocytes 1.3 % (1.7-9.3); % Neutrophils 93.3 % (42.2-75.2); Absolute Lymphocytes 0.3 10^3/uL (1.2-3.4); Absolute Monocytes 0.1 10^3/uL (0.1-0.6); Absolute Neutrophils 4.9 10^3/uL (1.4-6.5); Hematocrit 33.6 % (37.0-47.0); Mean Corp Hgb Conc. 32.7 g/dL (33.0-37.0); Mean Corpuscular Hgb 28.3 pg (27.0-31.0); Mean Corpuscular Volume 86.4 fL (81.0-99.0); Mean Platelet Volume 11.4 fL (7.4-10.4); Nucleated Red Blood Cells % 0 %; Platelet Count 129 10^3/uL (130-400); Red Blood Cell Count 3.89 10^6/uL (4.20-5.40); White Blood Cell Count 5.3 10^3/uL (4.8-10.8)
[2023-06-19 05:14] LABS: ALT (SGPT) 76 U/L (0-35); AST (SGOT) 49 U/L (14-36); Albumin 4.4 g/dl (3.5-5.0); Alkaline Phosphatase 226 U/L (38-126); Blood Urea Nitrogen 45 mg/dl (7-17); Carbon Dioxide 20 mmol/L (22-30); Chloride 93 mmol/L (98-107); Direct Bilirubin 1.3 mg/dl (0.0-0.4); Estimated Creatinine Clearance 9 ml/min; Glucose 116 mg/dl (70-99); HDL Cholesterol 107 mg/dl; LDL Cholesterol, Calculated 69 mg/dl; Potassium 5.6 mmol/L (3.5-5.1); Sodium 132 mmol/L (135-145); Total Bilirubin 1.9 mg/dl (0.2-1.3); Total Cholesterol 221 mg/dl (50-199); Total Protein 7.8 g/dl (6.3-8.2); Triglyceride 226 mg/dl (10-149); Very Low Density Lipoprotein 45 mg/dl (0-30); eGFR 6.92
[2023-06-19 05:32] VITALS: BMI 20.4
--- NOTE | 2023-06-19 05:34 | PTCARENOTE ---
CHG bath done, mouth care done, repositioned. Labs sent.
[2023-06-19] MEDS: LOKELMA 10 GRAM PO (06:06)
[2023-06-19] MEDS: DIPRIVAN 100 IV (06:06)
[2023-06-19] MEDS: NSS (PRESERVATIVE FREE) 10 ML IV ×2 (07:57→20:27)
[2023-06-19] MEDS: PROTONIX IV 40 MG IV ×2 (08:00→20:28)
--- NOTE | 2023-06-19 08:03 | W.PN.INTV ---
Addendum entered and electronically signed by Jose Chino MD 06/19/23 13:04:
Patient extubated without difficulty.
Resume oral antihypertensive therapy
Remove femoral line once adequate prophylaxis is obtained
Patient transferred out of ICU. We will sign off. Please call with questions
Addendum entered and electronically signed by Jose Chino MD 06/19/23 11:00:
Await cardiology input
Depending on access, may require PICC line if not able to obtain peripheral access
Would like to discontinue femoral line today
Reviewed with nursing
Original Note:
Today's Communication / Plan
Recommendations
SBT, wean
Daily EKG, follow QT
Repeat potassium in p.m.
Discontinue vancomycin, low threshold to discontinue cefepime
3 doses of Decadron for absent cuff leak
Resume antihypertensive therapy as able
Assessment
-
38-year-old female with complex medical history including end-stage renal disease on hemodialysis, history of lupus nephritis, hypertensive emergency, presents with nonspecific abdominal discomfort 06/15, hematemesis, lethargy. Upon arrival to
[facility], electively intubated, cardioverted for ventricular tachycardia (pulse intact). Patient also started on Cardene drip due to hypertension. Now admitted to ICU for further management 06/18/2023
VDRF, intubated 06/17/2023
Lethargy, airway protection
Ventricular tachycardia
Status post cardioversion in the ED
Prolonged QT
Hypertensive urgency/emergency
Requiring Cardene drip
Bibasilar groundglass infiltrates
Questionable aspiration
Hematemesis, nausea/emesis x 48 hours
Recent EGD 1 week ago in [place], details unclear
Unintentional weight loss
Mild transaminitis
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
ESRD -� On HD Sunday/Sunday/Sunday
Right upper extremity AV fistula
[facility], nephrology
History of renal transplant, failed
HTN-on multiple agents
h/o nephrectomy
Lupus nephritis
Lt forearm AVF
Anemia of CKD
Hyperphosphatemia
GERD
Plan/recommendations
At this time, patient is critically ill.
She is arousable, follows commands. Moves all extremities.
Did not have cuff leak yesterday, treated with 3 doses of Decadron since yesterday
Presently on volume-cycled ventilation
Systolic pressure is elevated in the 190s, labetalol as needed given this morning
Minimal secretions
Patient had some nausea, improved upon connecting NG tube to suction
Remains on amiodarone therapy
Prolonged QT improved
GI signing off
Recent upper endoscopy [place] 1 week ago, details unclear
Moving forward
Hopefully can extubate today, check cuff leak
Transition to SBT
Chest x-ray today without acute findings
However, Bibasilar groundglass changes noted per abdominal imaging
Continue cefepime. Will discontinue vancomycin. Low threshold to discontinue cefepime
Cultures negative to date
Prolonged QT noted
Patient not on any prolonged QT agents as outpatient
Present on amiodarone, propofol
Follow electrolytes
Wean off propofol as able
QT improved this morning, repeat EKG in a.m.
Mild hyperkalemia noted. Repeat potassium later p.m.
Hemodynamically stable, not requiring pressors.
Off nicardipine gtt, resume home meds as able. RASHMI inhibitor being held
Hypertension noted
Nephrology following
Resume antihypertensive therapy as able postextubation
Echocardiogram 06/17/2024 with normal biventricular function, moderate concentric LVH with mild aortic stenosis, PA pressure 35
History of renal transplant, explant in the past
History of lupus nephritis
Will need to get additional history postextubation
Patient with complex history
Nephrology following
HD Sunday/Sunday/Sunday
Hematemesis noted. Remains on Protonix twice a day
Patient with recent upper endoscopy 1 week ago in [place]
GI following, now signed off
Lipase normal
Mild transaminitis, follow
CBC stable, no signs of bleeding or coagulopathy.
Coagulation studies normal, platelets normal
Follow hemoglobin
DVT prophylaxis as assessed based on risk, including mechanical SCDs and subcutaneous heparin every 12 hours. Hematemesis history noted. Follow
INR normal
No prior h/o diabetes or thyroid disease
Monitor accuchecks PRN/SS coverage if needed
The above plan was reviewed at length with critical care nursing, pharmacy, respiratory care, case management
Updated sister at length at bedside
TCCT 38 min
Diagnostic Data
CXR - Moderate right perihilar pneumonia extending into the mid and lower portions of the right lung
Reports and relevant images were personally reviewed.
Subjective Dataa
Subjective Data
Date of Service:
Date of Service: June 19, 2023
Subjective:
Patient remains critically ill, ventilated, hypertension noted, continues to have nausea, mild abdominal pain. Denies shortness of breath. Primary complaint is also sore throat with a ET tube. Potassium 5.6 this morning
Objective Data
Data Reviewed
Vital Signs / I&O / Oxygen:
Vital Signs
Temp Pulse Resp BP Pulse Ox
98.7 F 73 16 196/114 99
06/19/23 03:07 06/19/23 06:00 06/18/23 15:21 06/18/23 16:18 06/19/23 07:21
Intake and Output
06/18/23 06/19/23 06/20/23
06:59 06:59 06:59
Intake Total 269.4 / 306.0 836.3 / 915.4 79.1 / 79.1
Output Total 0 / 0
Balance 269.4 / 306.0 836.3 / 915.4 79.1 / 79.1
SaO2 [ASV] 98
SaO2 [SIMV] 98
SaO2 [A/C] 95
SaO2 99
Physical Exam
General: Comfortable, Other (Upper extremity A-line) and Other (Right groin)
HEENT: Normocephalic and Anicteric
Cardiovascular: S1-S2, Regular Rhythm, Murmur (n) and Rub (n)
Respiratory: Wheeze (n), Crackles (n), Rhonchi (n) and Non-Labored Respirations
GI: Soft, Non Distended and Non Tender
Neurology: Awake, Alert and No Motor Deficits (Moves extremities)
Skin: Good Color, Cyanosis (n) and Jaundice (n)
Labs/Micro/Reports
Lab Data
06/19/23 04:25
Laboratory Results
06/18/23
15:28
pH 7.48 H
pCO2 43 H
pO2 199 H
HCO3 32.0 H
O2 Delivery Level
Microbiology
06/17/23 21:05 Blood/Venous Blood Culture - Preliminary
No Growth in 24 hours- Final report to follow
06/17/23 21:04 Blood/Venous Blood Culture - Preliminary
No Growth in 24 hours- Final report to follow
06/18/23 02:31 Nose Nasal Screen MRSA (PCR) - Final
MRSA not detected - performed by PCR methodology.
[2023-06-19] MEDS: HEPARIN 5000 UNITS SC ×2 (08:05→20:28)
--- NOTE | 2023-06-19 08:05 | PTCARENOTE ---
Received pt @ change of shift intubated/sedated/restrained- see flow sheet. SAT initiated @ 0750, prop/fent off-see flow sheet. Eyes open/blink spontaneously. Follows commands approp. Communicates via text; appropriate. SR w prolonged QTc on
monitor. SpO2 99% on vent on ASV, MV 100%/.40/+5. RT switched pt to CPAP settings for SBT 5/5/.40 @ 0800, tolerating wean. ETT #7.5, 22 lip in center. Suctioned for small amt of thick, clear secretions. Auscultated dim breath sounds throughout.
+BS, abd soft NT. L nare NGT to LIS w small amt of green output. Anuric. L radial A-line transduced, calibrated, and monitored; all ports patent and secured. R fem TL in place w amio and cardene gtts-see flow sheet. R EJ in place, patent, dressing
c/d/i. R arm fistula (+) bruit/thrill. Pt. instructed on plan of care, nods head understanding. Safe environment maintained.
--- NOTE | 2023-06-19 08:20 | W.PN.NEPH.PH ---
Today's Communication / Plan
-
Dialysis in a.m.
Reimplement oral antihypertensives once asked to be
Assessment/Plan
-
Impression:
Ventricular tachycardia status postcardiac arrest
Nausea vomiting on presentation
PNA
Hyperkalemia
End-stage renal disease Sunday
Multidrug-resistant hypertension
History of nephrectomy
History of lupus nephritis
Left forearm AV fist
GERD
Plan:
HD tomorrow,orders
patient now awake and oriented on vent, for extubation today
cardene off, will transition to oral anti htns after extubation
Blood pressure remains uncontrolled
Fluid restriction once PO
May benefit from kelak as outpatient for recurrent hyperkalemia despite dialysis
Restrict potassium restrict
Maintain current antihypertensives for uncontrolled hypertension in addition to attempt dry weight reduction on dialysis
Patient is intubated following cardiovascular arrest
45 minutes critical care time spent with patient
Remains on cefepime for pneumonia and steroids
-
-
Date of Service: June 19, 2023
CC / HPI / ROS
-
Chief Complaint:
End-stage renal disease
History of Present Illness:
ESRD Sunday
Elevated blood pressure
Remains on cefepime and Decadron in setting of pneumonia
Remains on amiodarone following cardiac arrest
Review of Systems:
Awake alert and interactive on vent
No fever
Labs
-
Labs:
WBC 5.3 10^3/uL (4.8-10.8) 06/19/23 04:25
RBC 3.89 10^6/uL (4.20-5.40) L 06/19/23 04:25
Hgb 11.0 g/dL (12.0-16.0) L 06/19/23 04:25
Hct 33.6 % (37.0-47.0) L 06/19/23 04:25
Plt Count 129 10^3/uL (130-400) L 06/19/23 04:25
eGFR 6.92 06/19/23 04:25
Phosphorus 12.9 mg/dl (2.5-4.5) H 06/18/23 05:40
Albumin 4.4 g/dl (3.5-5.0) 06/19/23 04:25
Physical Exam
-
Vital Signs:
Vital Signs
Temp Pulse Resp BP Pulse Ox
98.7 F 73 16 196/114 99
06/19/23 03:07 06/19/23 06:00 06/18/23 15:21 06/18/23 16:18 06/19/23 07:21
Cardiovascular:: Regular rate and rhythm
Respiratory:: Bilateral: Coarse
Lung Excursion:: Normal
Abdomen:: Nontender and Soft
Bowel Sounds:: Normal
Extremity Edema:: None: Bilateral:
Diallo Catheter: No
[2023-06-19] MEDS: TRANDATE 10 MG IV (08:23)
[2023-06-19] MEDS: TYLENOL ORAL SOLUTION 650 MG TUBE (08:23)
[2023-06-19] MEDS: DECADRON 6 MG IV (09:48)
[2023-06-19 09:55] VITALS: BP_SYST 189
[2023-06-19] MEDS: ANESTHETIC LOZENGE 1 LOZENGE PO ×3 (10:10→21:32)
[2023-06-19] MEDS: DILAUDID 0.25 MG IV ×3 (11:06→23:53)
[2023-06-19] MEDS: TRANDATE 300 MG TUBE ×3 (11:23→21:31)
[2023-06-19] MEDS: CARDENE 200 IV ×2 (11:37→14:28)
--- NOTE | 2023-06-19 12:00 | PTCARENOTE ---
During wean, pt c/o throat pain, medicated w prn-see APR. Elevated BP's, up to 190's. Dr. Chino aware; remains on Cardene gtt, titrated per orders and admin IV Labetalol- see APR. S/P approx 2H into vent wean, received further orders to
extubate. Pt. extubated by RT @ 0955 to 4LNC, no s/s of resp distress. Educated on coughing and deep breathing exercises, demonstrates understanding. Pt.'s sister @ bedside. pt and family continuously updated on plan of care. Instructed on how
to report care concerns and call sherman in reach.
--- NOTE | 2023-06-19 12:21 | W.PN.UPDATE ---
Update Note
Progress Note Update
EP Consult dictated
Imp:
Sustained monomorphic VT, just under 200 bpm. required cardioversion in the ER on 06/17/2023
- No clear reversible etiology of her sustained VT (K+ in the low 6s is not enough of a reversible cause in my mind)
- Heart is not structurally normal: mod LVH, mild valve disease
Long QTc, precedes Amio
- Perhaps from hypertensive heart disease
ESRD, on HD
Hx of lupus nephritis
Severe HTN
- I spoke to her longstanding medical appointment scheduler in [place] (Dr. Alexandra Brian, )
- He noted episodes of hypertensive emergency associated with acute HFpEF
- He noted sinus tach on high dose nifedipine
- He is not aware of prior VT or other heart disease
Height 5'3'/52 kg, BMI 20.3 kg
- She has a small frame
Suggest:
- Amio 400 bid for 10-12 grams, 400 a day for 2-3 months, then consider lowering to 200 a day. May consider stopping Amio at 6 months and observing off AAD
- Rafa consider more cardiac evaluation: cath/MRI
- We will almost certainly offer ICD implant prior to discharge
- A Martín Sci subcu ICD will be challenging given her frame/subcu tissue, desire for ATP for her monomorphic VT
- Can consider MDT extravascular ICD vs transvenous ICD
- Her young age and ESRD with HD access issues best if we could avoid a transvenous ICD
- Will need Amio evaluation (PFT/DLCO once further improved as baseline and will need routine LFT/TFT/TSH twice yearly while on Amio
[2023-06-19] MEDS: ATIVAN 1 MG IV (13:32)
--- NOTE | 2023-06-19 13:39 | CM ---
CM following re: discharge planning.
Discussed in rounds, reviewed pt's chart, met with pt and pt's sister Hui at bedside [phone].
Per Rounds meeting, pt remains intubated, short weaning trial today, continue supportive care.
Pt lives with her friend/SO in [place], 2SH, 2 steps to enter, has no children. Pt has been on outpatient HD treatment for 7 years, HD treatment center [facility], phone: [phone]; fax: [phone]. CM spoke to [facility] RN Mary Ann, she is
aware that pt is at and she is requested to fax pt's clinical to them at pt's discharge. Pt HD treatment is on MWF and pt's friend brings her to and from HD treatment. per Mary Ann, pt has been at their center for the past 2 months and she came to
them from [place].
Please fax discharge instructions to [facility] in [facility] at [phone].
D/C plan: home with resumptions of outpatient HD treatment at [facility] in [place] and family support. Sister to transport at discharge.
CM will follow with discharge plan updates as hospitalization progresses
[2023-06-19 15:20] LABS: Blood Urea Nitrogen 59 mg/dl (7-17); Calcium 8.7 mg/dl (8.4-10.2); Carbon Dioxide 21 mmol/L (22-30); Chloride 90 mmol/L (98-107); Estimated Creatinine Clearance 8 ml/min; Glucose 148 mg/dl (70-99); Sodium 127 mmol/L (135-145); eGFR 6.01
--- NOTE | 2023-06-19 15:28 | PN.CDI ---
CDI
- -
CDI:
Physician Documentation Request
Admit Date: 06/17/23 23:55
Dear Doctor Domingo ,
Please review the following and provide your response in the progress notes.
Clinical Indicators:
Pt admitted with VT/ Hyperkalemia /Sepsis 2/2 PNA possible aspiration /ESRD on HD
Sodium levels are as below
06/17/23 06/18/23 06/18/23
21:05 02:31 05:40
Sodium 130 L 134 L 133 L
06/19/23 06/19/23
04:25 14:41
Sodium 132 L 127 L
Based on the above, could you clarify in the progress notes, the appropriate diagnosis, if significant, that supports the above abnormalities and additional evaluation, monitoring and/or treatment rendered:
Hyponatremia
Abnormal lab value only
Other
Use of terms such as suspected, likely, concern for, or probable (associated with a specific diagnosis that is being evaluated, monitored, or treated as if it exists) are acceptable and can be coded in the inpatient setting, when documented at the
time of discharge.
Thank you,
Akosua Torres RN
CDI Specialist
[facility] [place] Text
Please use your independent medical judgment in providing your response.
--- NOTE | 2023-06-19 15:31 | PN.CDI ---
CDI
- -
CDI:
Physician Documentation Request
Admit Date: 06/17/23 23:55
Dear Doctor Domingo ,
Please review the following and provide your response in the progress notes.
Clinical Indicators:
Pt admitted with VT/ Hyperkalemia /Sepsis 2/2 PNA possible aspiration /ESRD on HD
Abd /Pelvis CT on admit,' Diffuse confluent groundglass opacity is noted at the lung bases. There is mild to moderate cardiomegaly. Cannot exclude pulmonary edema.'
Nephrology consult,' Maintain current antihypertensives for uncontrolled hypertension in addition to attempt dry weight reduction on dialysis...'
Ultrafiltration while on HD
Cardiology note 06/18, ' spoke to her longstanding company doctor in [place]... He noted episodes of hypertensive emergency associated with acute HFpEF...'
ECHO 06/17 , ' Estimated LVEF 65%....'
Please provide a diagnosis for the above findings/treatment :
Acute on Chronic Diastolic CHF
Chronic Diastolic CHF only
Other
Use of terms such as suspected, likely, concern for, or probable (associated with a specific diagnosis that is being evaluated, monitored, or treated as if it exists) are acceptable and can be coded in the inpatient setting, when documented at the
time of discharge.
Thank you,
Akosua Torres RN
CDI Specialist
Taylor Text
Please use your independent medical judgment in providing your response.
[2023-06-19] MEDS: PACERONE 400 MG TUBE ×2 (15:37→20:28)
--- NOTE | 2023-06-19 17:14 | W.PN.HOSP.TC ---
Today's Communication/Plan
-
Extubated today
Continue Cefepime
Will need ICD this admission
Monitor blood pressure closely
Assessment / Plan
Assessment / Plan
Physical Exam
General: Not in acute distress
HEENT: Moist mucous membranes
Respiratory: Equal air entry bilaterally. ETT in place.
Cardiac: S1/S2, Regular Rhythm
GI: Soft, Non Tender, Non Distended and Normal Bowel Sounds
Musculoskeletal: No Cyanosis and No Edema
Neuro: Awake. Alert.

A/P: Patient is a 38y F with PMH significant for HTN and ESRD on HD who presents to ED in [place] with complaints of abdominal pain and N/V.
Sustained monomorphic ventricular tachycardia
Hyperkalemia
Prolonged QTc - uncertain etiology
Suspected Chronic HFpEF
- Patient extubated on June 19, 2023
- Temporizing measures performed in the ED for hyperkalemia.
- Lokelma given via OGT; however, some of this may have subsequently leaked from the tube.
- May benefit from Lokelma as outpatient for recurrent hyperkalemia despite dialysis
- Potassium-restricted diet
- Repeat labs
- Hemodialysis as per nephrology
- Continue amiodarone for now given VT episode. Follow QT closely.
- Cardiology consulted, recommendations appreciated
- Will need ICD placement
ESRD on HD
Acute on Chronic Hyperkalemia
Hyponatremia
- s/p HD session on Sunday with no missed sessions.
- Followed with Dr. Alexandra Brian in [facility].
- Has apparently had recent issues with hyperkalemia and meds have been adjusted as a result.
- Would hold ARB / losartan in setting of hyperkalemia
- Nephrology evaluation as noted above.
- PO Fluid Restriction once eating and drinking
- Hemodialysis as per nephrology
- Though med lists are unclear, patient was previously on spironolactone and appears to currently be on losartan as noted above.
Hypertensive Emergency
History of Hypertensive Emergency
Multidrug Resistant Hypertension
- BP markedly elevated in the ED after rastafarian to sinus rhythm.
- Status post Nicardipine infusion
- Family notes long history of [id number] HTN despite multiple agents / med changes / etc.
- Adjust IV medications for now.
- Resume / restart enteral meds when appropriate.
- Nephrology input as noted above.
VDRF
Bilateral groundglass opacities on imaging
- Patient extubated on June 19, 2023
- Treat possible pneumonia as noted below.
- Ticket Attendant evaluation.
- Sedation protocols.
Sepsis
Pneumonia
- CT scan shows bilateral lower lobe opacities c/w pneumonia.
- ? initial pneumonia which triggered GI symptoms, etc - versus aspiration due to recurrent N/V.
- Patient hypothermic in the ED - continue Bridget hugger as needed
- Status post Vancomycin
- Continue Cefepime
Intractable N/V
Hematemesis
- Patient with recent upper endoscopy 1 week ago in [place]
- ? primary gastroenteritis v sequelae of underlying pneumonia, etc.
- Suspect that N/V plus baseline hyperkalemia precipitated presenting events.
- Blood seen in emesis on admission is likely secondary to mucosal injury / Araceli-Zaragoza due to persistent emesis.
- IV PPI BID for now - Upon discharge can decrease down to daily.
- GI evaluation for any additional recommendations.
- ollow for any recurrent emesis or other new complaints.
- CT A/P done in the ED with no acute intra-abdominal pathology.
Abnormal LFTs
Lactic Acidosis
- Suspect this is secondary to hypoperfusion in the setting of VT.
- ? component of viral process / infection / sepsis given concurrent pneumonia.
- Follow for improvement with treatment outlined above.
History of renal transplant, explant in the past
History of lupus nephritis
DVT Prophylaxis: Subcut heparin
Code Status: Full
Vtach needing Amiodarone, IV antibiotics, high blood pressure needing for monitoring and treatment in the ICU/IMU is a high risk encounter.
Anticipated Discharge: > 48 hours
Subjective/Interval History
-
Date of Service: June 19, 2023
Objective Data
-
Labs:
Laboratory Results
06/19/23 06/19/23
04:25 14:41
Sodium 132 L 127 L
Potassium 5.6 H D 5.0
Chloride 93 L 90 L
Carbon Dioxide 20 L 21 L
BUN 45 H 59 H
Creatinine 7.2 H* 8.1 H*
Glucose 116 H 148 H
Calcium 9.0 8.7
Total Bilirubin 1.9 H
AST 49 H
ALT 76 H
Alkaline Phosphatase 226 H
Vital Signs:
Vital Signs
Temp Pulse Resp BP Pulse Ox
98.9 F 68 20 163/89 97
06/19/23 08:00 06/19/23 16:00 06/19/23 09:55 06/19/23 11:23 06/19/23 16:00
I&O
06/18/23 06/19/23 06/20/23
06:59 06:59 06:59
Intake Total 269.4 / 306.0 836.3 / 915.4 651.9 / 651.9
Output Total 0 / 0
Balance 269.4 / 306.0 836.3 / 915.4 651.9 / 651.9
[2023-06-19] MEDS: MAXIPIME 1000 MG IV (18:02)
[2023-06-19] MEDS: STERILE WATER FOR INJECTION 10 ML IV (18:03)
--- NOTE | 2023-06-19 18:20 | PTCARENOTE ---
L Midline placed by VAT team. R fem TL removed by VAT, dressing c/d/i. Cardene gtt tapered to off-see flow sheet. Amio gtt d/c'd. L nare NGT clamped; intermittent nausea and reconnected to LIS @ x's; remains clamped @ this time. C/O severe
throat pain, Dr. Lane made aware and further orders received- see MAR. Pt.'s family @ bedside. Call sherman remains w in reach.
[2023-06-19] MEDS: CHLORASEPTIC/SORE THROAT SPRAY 2 SPRAY PO (20:28)
[2023-06-19] MEDS: BENADRYL 25 MG PO (21:30)
[2023-06-19 22:27] VITALS: BP 176/85
[2023-06-19 23:45] VITALS: BP 153/102
[2023-06-20] VITALS (47 sets, daily range): BP systolic 80–194; BP diastolic 20–117; BMI 21.1
--- NOTE | 2023-06-20 | PTCARENOTE ---
Received patient AAOx3, following commands, complaining of severe throat pain. PRN throat spray given, 2 hours later PRN throat lozenge given. Normal sinus, 70s with a prolonged QTC. No edema, weak palpable pedal pulses bilaterally, palpable radial
pulses bilaterally. BP 150s-170s/90s-100s. 95% on room air, lung sounds clear, diminished at the bases. NG tube clamped in left nare, irrigated with tap water Q4 and prn. Rectal probe removed, monica removed per HAND WINDER. NPO. Anuric, no BM yet this shift.
Abdomen soft, nontender, hypoactive bowel sounds. Skin intact. Left midline patent, WNL, right EJ patent, WNL. Right AV shunt positive bruit and thrill. Family at bedside.
[2023-06-20] MEDS: ANESTHETIC LOZENGE 1 LOZENGE PO (04:28)
[2023-06-20] MEDS: DILAUDID 0.25 MG IV ×4 (04:28→20:10)
[2023-06-20 04:48] LABS: % Basophils 0.2 % (0-2); % Immature Granulocytes 0.2 % (0-0.5); % Lymphocytes 3.5 % (20.5-51.1); % Monocytes 1.9 % (1.7-9.3); % Neutrophils 94.2 % (42.2-75.2); Absolute Lymphocytes 0.2 10^3/uL (1.2-3.4); Absolute Monocytes 0.1 10^3/uL (0.1-0.6); Hematocrit 30.4 % (37.0-47.0); Mean Corp Hgb Conc. 32.9 g/dL (33.0-37.0); Mean Corpuscular Hgb 27.7 pg (27.0-31.0); Mean Corpuscular Volume 84.2 fL (81.0-99.0); Mean Platelet Volume 9.9 fL (7.4-10.4); Nucleated Red Blood Cells % 0 %; Platelet Count 133 10^3/uL (130-400); Red Blood Cell Count 3.61 10^6/uL (4.20-5.40); Red Cell Dist. Width 14.9 % (11.5-14.5); White Blood Cell Count 6.4 10^3/uL (4.8-10.8)
--- NOTE | 2023-06-20 04:57 | PTCARENOTE ---
Patient called and was crying from severe pain in her throat, PRN dilaudid not due until 0600. PECAN SHELLER notified, stat dilaudid for breakthrough pain ordered and given. PRN throat lozenge given. Labs sent, comfort measures provided. Call sherman within
reach, family at bedside.
[2023-06-20 05:15] LABS: ALT (SGPT) 51 U/L (0-35); AST (SGOT) 41 U/L (14-36); Albumin 4.4 g/dl (3.5-5.0); Alkaline Phosphatase 205 U/L (38-126); Blood Urea Nitrogen 84 mg/dl (7-17); Calcium 8.7 mg/dl (8.4-10.2); Carbon Dioxide 17 mmol/L (22-30); Chloride 89 mmol/L (98-107); Estimated Creatinine Clearance 7 ml/min; Glucose 106 mg/dl (70-99); Magnesium 2.3 mg/dl (1.6-2.3); Potassium 5.8 mmol/L (3.5-5.1); Sodium 128 mmol/L (135-145); Total Bilirubin 1.8 mg/dl (0.2-1.3); Total Protein 7.6 g/dl (6.3-8.2); Triglycerides 149 mg/dl (10-149); eGFR 5.22
[2023-06-20] MEDS: ATIVAN 1 MG IV (08:46)
[2023-06-20] MEDS: FLUSH (NSS) 1 FLUSH IV (08:47)
[2023-06-20] MEDS: TRANDATE TUBE ×2 (09:15→12:03)
--- NOTE | 2023-06-20 09:20 | W.PN.NEPH.PH ---
Today's Communication / Plan
-
HD today
Assessment/Plan
-
Impression:
Ventricular tachycardia status postcardiac arrest
Nausea vomiting on presentation
PNA
Hyperkalemia
End-stage renal disease Sunday
Multidrug-resistant hypertension
History of nephrectomy
History of lupus nephritis
Left forearm AV fist
GERD
Plan:
A/w VT, AMS, s/p CV in ER , plan noted ICD prior d/c
hyperkalemia 6.3 on admit unlikely is the cause of it in ESRD pt
Blood pressure remains uncontrolled
Fluid restriction once PO
May benefit from Lokelma as outpatient for recurrent hyperkalemia despite dialysis
Restrict potassium restrict
Maintain current antihypertensives for uncontrolled hypertension in addition to attempt dry weight reduction on dialysis
plan LHC today per cards, will request RHC to asses vol status
reports cramping with UF
wonder if she may need BP meds adjusted (reports normally SBP in 200 range at home)
Remains on cefepime for pneumonia
d/w nursing and pt
-
-
Date of Service: June 20, 2023
CC / HPI / ROS
-
Chief Complaint:
End-stage renal disease
History of Present Illness:
ESRD Sunday
Elevated blood pressure off cardene gtt
Remains on cefepime in setting of pneumonia
Remains on amiodarone following cardiac arrest
sodium 128, k 5..8, while NPO
wt increasing
Review of Systems:
Awake alert and interactive
NGT present
No fever
c/o cramps on HD at out pt
feels overwhelmed, no cp or sob
Labs
-
Labs:
WBC 6.4 10^3/uL (4.8-10.8) 05/08/24 04:32
RBC 3.61 10^6/uL (4.20-5.40) L 06/20/23 04:32
Hgb 10.0 g/dL (12.0-16.0) L 06/20/23 04:32
Hct 30.4 % (37.0-47.0) L 06/20/23 04:32
Plt Count 133 10^3/uL (130-400) 06/20/23 04:32
Sodium 128 mmol/L (135-145) L 06/20/23 04:32
Potassium 5.8 mmol/L (3.5-5.1) H 06/20/23 04:32
Chloride 89 mmol/L (98-107) L 06/20/23 04:32
Carbon Dioxide 17 mmol/L (22-30) L 06/20/23 04:32
BUN 84 mg/dl (7-17) H 06/20/23 04:32
Creatinine 9.1 mg/dL (0.6-1.0) H* 06/20/23 04:32
eGFR 5.22 06/20/23 04:32
Glucose 106 mg/dl (70-99) H 06/20/23 04:32
Calcium 8.7 mg/dl (8.4-10.2) 06/20/23 04:32
Phosphorus 12.9 mg/dl (2.5-4.5) H 06/18/23 05:40
Albumin 4.4 g/dl (3.5-5.0) 06/20/23 04:32
Physical Exam
-
Vital Signs:
Vital Signs
Temp Pulse Resp BP Pulse Ox
98 F 68 20 150/102 96
06/20/23 07:23 06/20/23 06:00 06/19/23 09:55 06/20/23 06:00 06/20/23 06:00
Cardiovascular:: Regular rate and rhythm
Respiratory:: Bilateral: CTA (anteriorly)
Lung Excursion:: Normal
Abdomen:: Nontender and Soft
Extremity Edema:: None: Bilateral:
Diallo Catheter: No
--- NOTE | 2023-06-20 09:29 | W.PN.NEPH.HD ---
Assessment
-
pt seen during HD
vitals stable , BP high with out meds
wt is up , UF as tolerates
AVF functions well
LHC after HD
Progress Note - Hemodialysis
-
Date of Service: June 20, 2023
Duration: 30 minutes and 3 hours
Potassium Bath: 2
Calcium Bath: 2.5
Opti-Dialyzer: 160
Ultrafiltration: Other (3kg)
Blood Flow: 400
Dialysate Flow: 600
Heparin: no
EPO: no
[2023-06-20] MEDS: PROTONIX IV 40 MG IV ×2 (09:37→20:09)
[2023-06-20] MEDS: NSS (PRESERVATIVE FREE) 10 ML IV ×2 (09:38→20:10)
[2023-06-20] MEDS: HEPARIN 5000 UNITS SC (09:39)
--- NOTE | 2023-06-20 10:18 | W.PN.CD ---
Today's Communication / Plan
-
-
Amio 400 bid for 10-12 grams, 400 a day for 2-3 months, then consider lowering to 200 a day.� May consider stopping Amio at 6 months and observing off AAD
Cath today
Cardiac MRI Sunday
ICD likely Sunday
If MRI shows evidence of myocarditis we may ask Rheum thoughts on cardiac involvement with Lupus and treatment
Impression / Plan
-
Imp:
Sustained monomorphic VT, just under 200 bpm. required cardioversion in the ER on 06/17/2023
- No clear reversible etiology of her sustained VT (K+ in the low 6s is not enough of a reversible cause in my mind)
- Heart is not structurally normal: mod LVH, mild valve disease
EP Plans:
- Amio 400 bid for 10-12 grams, 400 a day for 2-3 months, then consider lowering to 200 a day.� May consider stopping Amio at 6 months and observing off AAD
- Cath today, MRI Sunday
- ICD likely Sunday
- A Martín Sci subcu ICD will be challenging given her frame/subcu tissue, desire for ATP for her monomorphic VT
- Can consider MDT extravascular ICD vs transvenous ICD
- Her young age and ESRD with HD access issues best if we could avoid a transvenous ICD
- Will need Amio evaluation (PFT/DLCO once further improved as baseline and will need routine LFT/TFT/TSH twice yearly while on Amio
Long QTc, precedes Amio
- Perhaps from hypertensive heart disease
Valvular heart disease
- Mild
- Mild MR
Abnormal troponin, likely nonischemic myocardial injury in the setting of ESRD and critical illness
-Trend to peak
-Trend EKGs
ESRD, on HD
Hx of lupus nephritis
Severe HTN
- Moderate LVH on echo likely from HTN
- I spoke to her longstanding snaker driving horses in [place] (Dr. Alexandra Brian, )
- He noted episodes of hypertensive emergency associated with acute HFpEF
- He noted sinus tach on high dose nifedipine
- He is not aware of prior VT or other heart disease
Height 5'3'/52 kg, BMI 20.3 kg
- She has a small frame
Subjective:
No CP or dyspnea, tele quiet
Physical Exam
Vital Signs/Labs
Vital Signs
Temp Pulse Resp BP Pulse Ox
98 F 68 20 150/102 96
06/20/23 07:23 06/20/23 06:00 06/19/23 09:55 06/20/23 06:00 06/20/23 06:00
06/19/23 06/20/23 06/21/23
06:59 06:59 06:59
Actual Weight 52.1 kg 54.1 kg
06/20/23 04:32
06/20/23 04:32
PT 13.6 Sec (11.4-14.6) 06/17/23 21:05
INR 1.05 06/17/23 21:05
APTT 36.3 Sec (23.4-35.0) H 06/17/23 21:05
Magnesium 2.3 mg/dl (1.6-2.3) 06/20/23 04:32
Triglycerides 149 mg/dl (10-149) 06/20/23 04:32
LDL Cholesterol, Calc 69 mg/dl 06/19/23 04:25
VLDL Cholesterol, Calc 45 mg/dl (0-30) H 06/19/23 04:25
HDL Cholesterol 107 mg/dl 06/19/23 04:25
LAB Results
06/17/23 06/18/23 06/18/23
21:05 02:31 07:59
Troponin I 0.088 H* 0.153 H* D 0.178 H*
06/18/23
13:07
Troponin I 0.134 H*
Physical Exam
Constitutional: No acute distress
EENT: Anicteric
Cardiovascular: Rhythm & rate is regular and Systolic murmur present
Respiratory: Respiratory effort normal and Lungs clear to auscul.
GI: Soft and Distention absent
Neuro/Psych: AO x 3
Data Reviewed
-
Date of Service: June 20, 2023
--- NOTE | 2023-06-20 11:52 | PTCARENOTE ---
0700 Received pt in bed, AOx3, HD RN setting up at bedside. R AVF noted. R EJ & L midline noted. NGT clamped. Pt tolerating ice chips. NSR on monitor, + murmur, BP elevated, 96% on RA, LSCTA. Pt anuric. Discussed plan of care w/ patient and family.
Dr Ji in to see pt, plan for cardiac cath this afternoon after HD. Will continue to monitor.
0900 Medicated for anxiety w/ 1mg IV Ativan, w/ 0.25mg IV Dilaudid for pain in neck, throat and ear, w/ good result. Emotional support provided.
1100 Pt resting comfortably on HD
1150 HD completed, 3kg removed.
[2023-06-20] MEDS: ASPIRIN 325 MG PO (11:57)
[2023-06-20] MEDS: PACERONE 400 MG TUBE ×2 (11:57→20:09)
[2023-06-20] MEDS: TRANDATE 10 MG IV (12:04)
--- NOTE | 2023-06-20 12:33 | CM ---
CM following re: discharge planning.
Discussed in rounds, reviewed pt's chart, met with pt and pt's sister Hui at bedside [phone].
Per Rounds meeting, pt extubated yesterday, HD today, cardiac cath today, MRI on Sunday and ICD on Sunday, continue supportive care.
Pt lives with her friend/SO in [place], 2SH, 2 steps to enter, has no children. Pt has been on outpatient HD treatment for 7 years, HD treatment center [facility], phone: [phone]; fax: [phone]. CM spoke to [facility] RN Mary Ann, she is
aware that pt is at and she is requested to fax pt's clinical to them at pt's discharge. Pt HD treatment is on [facility] and pt's friend brings her to and from HD treatment. per Mary Ann, pt has been at their center for the past 2 months and she came to
them from [place].
Please fax discharge instructions to [facility] in [facility] at [phone].
D/C plan: home with resumptions of outpatient HD treatment at [facility] [place] and family support. Sister to transport at discharge.
CM will follow with discharge plan updates as hospitalization progresses
--- NOTE | 2023-06-20 14:34 | W.PN.HOSP.TC ---
Today's Communication/Plan
-
ENT consulted for throat and ear pain
Off NG tube
Diet after cardiac cath
Transfer to IVU
Assessment / Plan
Assessment / Plan
Physical Exam
General: Not in acute distress
HEENT: Moist mucous membranes
Respiratory: Equal air entry bilaterally.
Cardiac: S1/S2, Regular Rhythm
GI: Soft, Non Tender, Non Distended and Normal Bowel Sounds
Musculoskeletal: No Cyanosis and No Edema
Neuro: Awake. Alert.

A/P: Patient is a 38y F with PMH significant for HTN and ESRD on HD who presents to ED in [place] with complaints of abdominal pain and N/V.
Sustained monomorphic ventricular tachycardia
Hyperkalemia
Prolonged QTc - uncertain etiology
Suspected Chronic HFpEF
- Patient extubated on June 19, 2023
- Temporizing measures performed in the ED for hyperkalemia.
- Lokelma given via OGT; however, some of this may have subsequently leaked from the tube.
- May benefit from Lokelma as outpatient for recurrent hyperkalemia despite dialysis
- Potassium-restricted diet
- Repeat labs
- Hemodialysis as per nephrology
- Continue amiodarone for now given VT episode: per cardiology, Amiodarone 400 mg bid for 10-12 grams, 400 mg a day for 2-3 months, then
consider lowering to 200 mg per day with evaluation for stopping Amiodarone at 6 months
- Follow QT closely.
- Cardiology consulted, recommendations appreciated
- Will need ICD placement -- likely on Sunday June 25, 2023
- Cardiac cath for June 20, 2023
- Cardiac MRI for June 22, 2023 (to check for myocarditis)
Ear and Throat Pain following Extubation
- ENT consult, recommendations appreciated
- Continue pain management
ESRD on HD
Acute on Chronic Hyperkalemia
Hyponatremia
- s/p HD session on Sunday with no missed sessions.
- Followed with Dr. Alexandra Brian in [facility].
- Has apparently had recent issues with hyperkalemia and meds have been adjusted as a result.
- Would hold ARB / losartan in setting of hyperkalemia
- Nephrology evaluation as noted above.
- PO Fluid Restriction once eating and drinking
- Hemodialysis as per nephrology
- Though med lists are unclear, patient was previously on spironolactone and appears to currently be on losartan as noted above.
Hypertensive Emergency
History of Hypertensive Emergency
Multidrug Resistant Hypertension
- BP markedly elevated in the ED after sabianist to sinus rhythm.
- Status post Nicardipine infusion
- Family notes long history of [id number]-[id number] HTN despite multiple agents / med changes / etc.
- Continue Labetalol
- Nephrology input as noted above.
VDRF
Bilateral groundglass opacities on imaging
- Patient extubated on June 19, 2023
- Treat possible pneumonia as noted below.
- Distribution Lead evaluation recommendations appreciated
Sepsis
Pneumonia
- CT scan shows bilateral lower lobe opacities c/w pneumonia.
- ? initial pneumonia which triggered GI symptoms, etc - versus aspiration due to recurrent N/V.
- Patient hypothermic in the ED - continue Bridget hugger as needed
- Status post Vancomycin
- Continue Cefepime
Intractable N/V
Hematemesis
- Patient with recent upper endoscopy 1 week ago in [place]
- ? primary gastroenteritis v sequelae of underlying pneumonia, etc.
- Suspect that N/V plus baseline hyperkalemia precipitated presenting events.
- Blood seen in emesis on admission is likely secondary to mucosal injury / Araceli-Zaragoza due to persistent emesis.
- IV PPI BID for now - Upon discharge can decrease down to daily.
- GI evaluation for any additional recommendations.
- Follow for any recurrent emesis or other new complaints.
- CT A/P done in the ED with no acute intra-abdominal pathology.
Abnormal LFTs
Lactic Acidosis
- Suspect this is secondary to hypoperfusion in the setting of VT.
- ? component of viral process / infection / sepsis given concurrent pneumonia.
- Follow for improvement with treatment outlined above.
History of renal transplant, explant in the past
History of lupus nephritis
DVT Prophylaxis: Subcut heparin
Code Status: Full
Vtach needing Amiodarone, IV antibiotics, high blood pressure needing for monitoring and treatment in the ICU/IVU is a high risk encounter.
Anticipated Discharge: > 48 hours
Subjective/Interval History
-
Date of Service: June 20, 2023
Patient was seen and examined. She reported significant throat pain needing Dilaudid, as Cepacol did not help. She would like a diet as soon as possible.
Objective Data
-
Labs:
Laboratory Results
06/20/23
04:32
WBC 6.4
Hgb 10.0 L
Hct 30.4 L
Plt Count 133
Sodium 128 L
Potassium 5.8 H
Chloride 89 L
Carbon Dioxide 17 L
BUN 84 H
Creatinine 9.1 H*
Glucose 106 H
Calcium 8.7
Total Bilirubin 1.8 H
AST 41 H
ALT 51 H
Alkaline Phosphatase 205 H
Vital Signs:
Vital Signs
Temp Pulse Resp BP Pulse Ox
98.5 F 81 20 194/113 98
06/20/23 11:09 06/20/23 12:04 06/19/23 09:55 06/20/23 12:04 06/20/23 10:15
I&O
06/19/23 06/20/23 06/21/23
06:59 06:59 06:59
Intake Total 836.3 / 915.4 841.9 / 841.9
Output Total 0 / 0
Balance 836.3 / 915.4 841.9 / 841.9
[2023-06-20] MEDS: TRANDATE 300 MG TUBE (15:51)
--- NOTE | 2023-06-20 15:55 | PTCARENOTE ---
Assumed care of pt at 1510 following shift report. Pt resting quietly in bed, watching TV w/ multiple visitors in room. No complaints received. Scheduled meds administered. Phone call from 'Janine TRUONG' in [employer] received and report given. Pt
transported via stretcher for planned cardiac cath. Pt to go to IVU following cardiac cath. Pt's visitors provided assistance in transporting pt's belongings to new room.
--- NOTE | 2023-06-20 17:22 | ITS.CL.CATH ---
[facility] Player - Catheterization
Cardiac Catheterization
Procedure Report:
CARDIAC CATHETERIZATION REPORT
Date of Procedure: 06/20/2023
Referring: Charlie Ji M.D.
Indication: Monomorphic ventricular tachycardia in the context of lupus and lupus nephritis with ESRD.
PROCEDURE:
1. Right heart catheterization.
2. Left heart catheterization.
3. Coronary angiography.
ACCESS:
6 [place] right common femoral artery using a modified Seldinger technique with a micropuncture kit under ultrasound guidance.
5 [place] right common femoral vein using modified Seldinger technique with a micropuncture kit under ultrasound guidance.
CATHETERS:
1. 5 [place] balloon wedge.
2. 5 [place] JL 3.5.
3. 5 [place] JR4.
HEMODYNAMIC DATA
Weight (kg): 54.1
AO (s/d/x mmHg): 202/115/150
LV (s/x mmHg): 205/14 (A wave to 35)
PCWP (a/v/x mmHg): 25/26/20
PA (s/d/x mmHg): 43/23/30
RV (s/x mmHg): 43/7
RA (a/v/x mmHg): 9/
SVC SvO2 (%): 77.4
PA SvO2 (%): 70.0
SaO2 (%): 93.8
Hbg (g/dL): 10.5
CO (L/min): 4.71
CI (L/min/m2): 3.04
TPG (mmHg): 10
PVR (Hare Units): 2.12
SVR (dynes*seconds*cm^-5): 2429
AVO2 Diff (Volume %): 3.40
AV gradient (x, mmHg): None.
AV area (cm2): Normal.
LEFT VENTRICULOGRAPHY: Not performed.
CORONARY ANGIOGRAPHY
Dominance: Right.
Left Main: Normal size, bifurcating vessel. There is no coronary artery disease.
LAD: Normal size vessel giving rise to several small diagonals. There is some mild tapering of the proximal LAD that is not clearly atherosclerotic but may in fact just be the normal contour of the vessel.
Ramus: Congenitally absent.
Circumflex: Large size, nondominant vessel giving rise to 1 large obtuse marginal before terminating as a left posterolateral branch. There is no coronary artery disease. The obtuse marginal is severely tortuous in its proximal segment.
RCA: Normal size, dominant vessel. There are minor luminal irregularities.
INTERVENTIONS
None.
Closure Device: Manual pressure for the right common femoral artery and right common femoral vein.
Radiation dose (mGy): 122.4
DAP (cm2.Gy): 9.7832
Fluoroscopy time (minutes): 6.1
Sedation time (minutes): 13
CONCLUSIONS:
1. Right dominant circulation with minor luminal irregularities in the RCA and some mild tapering of the proximal LAD, possibly the natural contour of the LAD versus very mild atherosclerosis.
2. No obvious ischemic source for monomorphic ventricular tachycardia.
3. Top normal to mildly elevated filling pressures (LVEDP = 14 mmHg, PCWP = 20 mmHg at 54.1 kg) with evidence of significant diastolic dysfunction (A wave to 35 mmHg).
RECOMMENDATIONS:
1. Expectant management after cardiac catheterization via right common femoral approach.
2. Limited weight bearing for one week.
3. Aggressive risk factor modification for primary prevention.
4. Continue secondary prevention treatment for ventricular tachycardia.
5. Aggressive blood pressure control.
Copy to: Charlie Ji M.D.
Raúl Choudhury DO, FACC, FACP
[2023-06-20] MEDS: MAXIPIME 1000 MG IV (18:04)
[2023-06-20] MEDS: STERILE WATER FOR INJECTION 10 ML IV (18:04)
--- NOTE | 2023-06-20 18:22 | PTCARENOTE ---
Pt returned to Rm 3366 at 1725 s/p cardiac cath w/ Rt femoral venous sheath/Mariana in place. Cardene infusing at 2.5mg /hr upon arrival- to titrate to keep SBP<160. Femoral a-line transduced, leveled and zero-balanced. Pt awake and w/o complaints.
Pt's family visiting at bedside. Comfort care provided. Diet order requested from Dr Cherry
--- NOTE | 2023-06-20 19:02 | CON.MD ---
Consultation - Medical
-
Chief complaint: right ear pain, throat pain
History of present illness: This 38-year-old woman was just intubated for couple of days and extubated recently. She is now experiencing pretty significant right ear pain as well as throat pain. She feels pain in the back of her throat. She is
not having any difficulty breathing. She is having pain when she swallows. I was asked to evaluate the patient for these problems. She normally does not have significant throat pain. She has a history of hypertensive heart and chronic kidney
disease and is on hemodialysis.
Past medical history:
Medical problems: Hyponatremia, diastolic congestive heart failure, hypertensive heart and chronic kidney disease with heart failure and stage V chronic kidney disease, systemic lupus erythematosus, hypertension, nonischemic myocardial injury,
kidney transplant status, gastroesophageal laceration hemorrhage syndrome, acidosis, hematemesis, pneumonitis due to inhalation of food and vomit, sepsis, ventricular tachycardia, end-stage renal disease, acute hyperkalemia, pneumonia, hypertensive
emergency.
Allergies: No known drug allergies
Medications: Aspirin 81 mg p.o. daily
Clonidine hydrochloride 0.1 mg p.o. 3 times daily
Dyclonine 20 mg p.o. 3 times daily as needed
Gabapentin 100 mg p.o. daily
Hydralazine 100 mg p.o. 3 times daily
Hydroxyzine hydrochloride 50 mg p.o. 3 times daily as needed
Labetalol 300 mg p.o. 3 times daily
Losartan 100 mg p.o. daily
Nifedipine 60 mg p.o. twice daily
Oxycodone 5 mg p.o. twice daily as needed
Pantoprazole 40 mg p.o. daily
Hospitalizations: The patient has had multiple hospitalizations for cystic kidney disease, hypertension, kidney transplant etc.
Family history: Asked and noncontributory for this problem
Social history: The patient is a non-smoker
Review of systems: Positive for sore throat and right ear pain, negative for respiratory distress, positive for kidney failure with dialysis, negative for chest pain
Physical examination:
Head: Atraumatic and normocephalic
Eyes: Extraocular movements are intact and pupils are equal and reactive to light
Ears: Clear without signs of fluid or infection
Nose: Clear without infection
Oral cavity: The patient has a bruise on the soft palate just to the left of the uvula. No active bleeding is seen
Oropharynx: Clear
Neck: Supple without adenopathy
Cranial nerves: 2 through 12 are intact
Thyroid gland: Normal
Salivary glands: Normal to exam
Procedure: Flexible laryngoscopy
hypopharynx and larynx were evaluated with a flexible laryngoscope. There is no airway obstruction of the lower airway and no evidence of significant hematoma.
Impression: The patient has soft tissue trauma as a result of endotracheal tube trauma either from its position while intubated or during intubation. She has evidence of bruising but no significant hematoma or airway obstruction.
Plan: This 38-year-old woman with end-stage renal failure presents after having been intubated for couple of days with a sore throat and ear pain. These problems seem to be related to endotracheal tube trauma and should resolve spontaneously. No
specific treatment is required otherwise. I will see the patient back as needed.
--- NOTE | 2023-06-20 20:00 | PTCARENOTE ---
Received patient AAOx3, following commands, complaining of pain in throat and femoral sheath, prn dilaudid given. Normal sinus, 70s-80s. Cardene gtt on, titrating to meet SBP 120-140. Palpable pedal and radial pulses bilaterally. Normothermic. 98%
on room air, lung sounds clear and diminished at the bases. Abdomen soft, round, nondistended. Positive bowel sounds. 2 g sodium/potassium diet. Anuric, had HD today. Skin intact. AV shunt on right arm, positive bruit and thrill. Cardene infusing
through right EJ, patent WNL. Left midline patent, WNL. Family at bedside.
[2023-06-20] MEDS: RENVELA 2400 MG PO (20:09)
[2023-06-20] MEDS: PROCARDIA XL (EXTENDED RELEASE) 60 MG PO (20:09)
[2023-06-20] MEDS: HEPARIN SC (20:11)
[2023-06-20] MEDS: CARDENE 200 IV (20:28)
[2023-06-20 20:57] LABS: ACT-LR - POC 139 Seconds (116-155)
--- NOTE | 2023-06-20 21:15 | PTCARENOTE ---
ACT checked by IVU nurse, <170, CT surgery MELBA notified, came to patients room and removed femoral sheath. Site checks and pulse checks ongoing per protocol.
--- NOTE | 2023-06-20 21:50 | W.PN.CARD.SR ---
Sheath/IABP Sheath Removal
Sheath Removal
Right Arterial Femoral:
Site appearance prior to sheath removal: Intact
Size of hematoma in cm: 0
Sheath removed by:: Physician assistant professor of radiology
Name of associate removing sheath: Mary Jo Rao
Time of sheath removal: 21:20
Time hemostasis achieved: 21:40
Site appearance post sheath removal: Intact
Size of hematoma in cm: 0
Method of Hemostasis Post Sheath Removal: Manual Pressure
Dressing dry and intact?: Yes
Comments: Site is clean, dry, intact, nontender, no hematoma
--- NOTE | 2023-06-20 21:52 | W.PN.CARD.SR ---
Sheath/IABP Sheath Removal
Sheath Removal
Right Venous Femoral:
Site appearance prior to sheath removal: Intact
Size of hematoma in cm: 0
Sheath removed by:: Physician senior office support assistant sosa
Name of associate removing sheath: Mary Jo Rao
Time of sheath removal: 21:20
Time hemostasis achieved: 21:40
Site appearance post sheath removal: Intact
Size of hematoma in cm: 0
Method of Hemostasis Post Sheath Removal: Manual Pressure
Dressing dry and intact?: Yes
Comments: site is cdi, nontender, no hematoma. 2+ palpable R PT and 1+ DP
[2023-06-20] MEDS: BENADRYL 25 MG PO (22:13)
[2023-06-20] MEDS: TRANDATE 300 MG PO (22:13)
[2023-06-20] MEDS: TYLENOL 650 MG PO (23:56)
[2023-06-21] VITALS (28 sets, daily range): BP systolic 82–147; BP diastolic 49–98; BMI 20.5
[2023-06-21] MEDS: XANAX 0.5 MG PO (00:11)
[2023-06-21 06:37] LABS: % Basophils 0.2 % (0-2); % Eosinophils 0.2 % (0-6); % Immature Granulocytes 0.6 % (0-0.5); % Monocytes 6.2 % (1.7-9.3); % Neutrophils 85.8 % (42.2-75.2); Absolute Lymphocytes 0.5 10^3/uL (1.2-3.4); Absolute Monocytes 0.4 10^3/uL (0.1-0.6); Absolute Neutrophils 5.7 10^3/uL (1.4-6.5); Hematocrit 32.2 % (37.0-47.0); Hemoglobin 10.4 g/dL (12.0-16.0); Mean Corp Hgb Conc. 32.3 g/dL (33.0-37.0); Mean Corpuscular Volume 86.8 fL (81.0-99.0); Nucleated Red Blood Cells % 0 %; Platelet Count 143 10^3/uL (130-400); Red Blood Cell Count 3.71 10^6/uL (4.20-5.40); White Blood Cell Count 6.6 10^3/uL (4.8-10.8)
[2023-06-21 07:06] LABS: ALT (SGPT) 44 U/L (0-35); AST (SGOT) 33 U/L (14-36); Alkaline Phosphatase 240 U/L (38-126); Blood Urea Nitrogen 51 mg/dl (7-17); Calcium 8.2 mg/dl (8.4-10.2); Carbon Dioxide 23 mmol/L (22-30); Chloride 95 mmol/L (98-107); Estimated Creatinine Clearance 11 ml/min; Glucose 105 mg/dl (70-99); Magnesium 2.3 mg/dl (1.6-2.3); Sodium 132 mmol/L (135-145); Total Bilirubin 1.2 mg/dl (0.2-1.3); Total Protein 7.2 g/dl (6.3-8.2); eGFR 9.56
--- NOTE | 2023-06-21 08:00 | PTCARENOTE ---
Received patient AAOx3, following commands, Normal sinus, 70s-80s. Palpable pedal and radial pulses bilaterally. Normothermic. 98% on room air, lung sounds clear and diminished at the bases. Abdomen soft, round, nondistended. Positive bowel
sounds.Tolerating diet. Anuric Skin intact. AV fistula on right arm, positive bruit and thrill.Sterile techniques redressed right EJ, patent. Left midline patent, . Family at bedside, updated regarding transfer to [facility]
[2023-06-21] MEDS: PROCARDIA XL (EXTENDED RELEASE) 60 MG PO (08:45)
[2023-06-21] MEDS: RENVELA 2400 MG PO ×3 (08:46→18:08)
[2023-06-21] MEDS: HEPARIN SC ×2 (08:46→08:58)
[2023-06-21] MEDS: PROTONIX 40 MG PO (08:46)
[2023-06-21] MEDS: TRANDATE 300 MG PO ×2 (08:46→16:01)
--- NOTE | 2023-06-21 09:14 | W.PN.CD ---
Addendum entered and electronically signed by Ramesh Sanches MD 06/21/23 09:46:
38 yo female admitted with monomorphic VT, also with prolonged QT. Cath with no sig CAD. Echo with normal LVEF. She has no cardiac complaints today. Exam with RRR, no murmurs, no edema. Tele: SR 70s.
Discussed with EP. Amiodarone has been stopped. Continue beta bryson. If VT recurs, will try to capture on 12 lead EKG (ordered).
Awaiting txf to [facility] for ICD. If still here tomorrow, will get cMRI here.
Original Note:
Today's Communication / Plan
-
-cardiac MRI tomorrow
-[facility] transfer when bed available for device placement
-continue BB and follow telemetry
Impression / Plan
-
Impression:
Sustained monomorphic VT, just under 200 bpm. required cardioversion in the ER on 06/17/2023
-No clear reversible etiology of her sustained VT (K+ in the low 6s is not felt to be enough of a reversible cause per EP)
-Heart is not structurally normal: mod LVH, mild valve disease
-now s/p cath 06/20/23: Right dominant circulation with minor luminal irregularities in the RCA and some mild tapering of the proximal LAD, possibly the natural contour of the LAD versus very mild atherosclerosis. No obvious ischemic source for
monomorphic ventricular tachycardia. Top normal to mildly elevated filling pressures (LVEDP = 14 mmHg, PCWP = 20 mmHg at 54.1 kg) with evidence of significant diastolic dysfunction (A wave to 35 mmHg). Right femoral cath site stable no hematoma.
EP Plans:
-amiodarone discontinued per EP. Remains on BB. Follow telemetry.
-A Mart[employer] subcu ICD will be challenging given her frame/subcu tissue, desire for ATP for her monomorphic VT
-Can consider MDT extravascular ICD vs transvenous ICD. Her young age and ESRD with HD access issues best if we could avoid a transvenous ICD.
-Dr. Ji spoke with [facility] and plan is for transfer when bed available for device placement
Long QTc, precedes Amio
-Perhaps from hypertensive heart disease
-plan as above
Valvular heart disease
- Mild
- Mild MR
Abnormal troponin, likely nonischemic myocardial injury in the setting of ESRD and critical illness
-Trend to peak
-Trend EKGs
ESRD, on HD
Hx of lupus nephritis
Severe HTN
- Moderate LVH on echo likely from HTN
- Dr. Ji spoke to her longstanding book repairer in [place] (Dr. Alexandra Brian, )
- He noted episodes of hypertensive emergency associated with acute HFpEF
- He noted sinus tach on high dose nifedipine
- He is not aware of prior VT or other heart disease
Height 5'3'/52 kg, BMI 20.3 kg
- She has a small frame
Physical Exam
Vital Signs/Labs
Vital Signs
Temp Pulse Resp BP Pulse Ox
97.7 F 67 20 152/111 98
06/21/23 08:09 06/21/23 08:46 06/19/23 09:55 06/21/23 08:46 06/21/23 05:15
06/20/23 06/21/23 06/22/23
06:59 06:59 06:59
Actual Weight 54.1 kg 52.4 kg
06/21/23 05:56
06/21/23 05:56
PT 13.6 Sec (11.4-14.6) 06/17/23 21:05
INR 1.05 06/17/23 21:05
APTT 36.3 Sec (23.4-35.0) H 06/17/23 21:05
Magnesium 2.3 mg/dl (1.6-2.3) 06/21/23 05:56
Triglycerides 149 mg/dl (10-149) 06/20/23 04:32
LDL Cholesterol, Calc 69 mg/dl 06/19/23 04:25
VLDL Cholesterol, Calc 45 mg/dl (0-30) H 06/19/23 04:25
HDL Cholesterol 107 mg/dl 06/19/23 04:25
LAB Results
06/18/23
13:07
Troponin I 0.134 H*
Physical Exam
Constitutional: No acute distress
EENT: Anicteric
Cardiovascular: Rhythm & rate is regular
Respiratory: Respiratory effort normal and Lungs clear to auscul.
Neuro/Psych: AO x 3
Data Reviewed
-
Date of Service: June 21, 2023
EKG: Other (te;e SR)
Medical Tests (PFT, Pathology etc): Other (cath results reviewed as above)
Labs: Labs Reviewed by me
--- NOTE | 2023-06-21 10:13 | PTOTSP ---
Dysphagia Evaluation
Oral/pharyngeal stages of swallowing suspected to be grossly WFL. Patient reported signs concerning for chronic esophageal dysphagia (i.e., stasis of with dry solids on-going for 3 months, reduced with a liquid wash). Consider GI consult.
Patient with mild dysphonia (hoarse vocal quality) after intubation (06/16-06/18) this admission. ENT scoped patient 06/19/2023 due to c/o odynophagia and right ear pain. They found 'soft tissue trauma as a result of endotracheal tube trauma' and stated
symptoms should resolve spontaneously.
Recommend:
1. Regular, Thin Liquids
2. Strategies: upright to 90 degrees, pick soft/moist foods, alternate solids/liquids, remain upright at least 30 minutes after PO intake
3. GI consult to assess esophageal swallowing.
4. No further dysphagia therapy warranted with an SHIPPING CLERK CRATING. Please reconsult as appropriate.
--- NOTE | 2023-06-21 11:26 | W.PN.NEPH.PH ---
Today's Communication / Plan
-
HD tomorrow after MRI
Assessment/Plan
-
Impression:
Ventricular tachycardia status post cardioversion
Nausea vomiting on presentation
PNA
Hyperkalemia
End-stage renal disease Sunday
Multidrug-resistant hypertension
History of nephrectomy
History of lupus nephritis
Left forearm AV fist
GERD
Plan:
A/w VT, AMS, s/p CV in ER , plan noted ICD
hyperkalemia 6.3 on admit unlikely is the cause of it in ESRD pt
Blood pressure chronically uncontrolled
noted LHT with out obst CAD, RHC PCWP of 20, LVEDP of 14mmhg at 52kg
mildly elevated filling pressures suspect her DW is about 51kg
current BP are stable BB and CCB, off nicardipine gtt-hypotensive overnight, losartan, clonidine,hydralazine remains on hold
May benefit from [facility] non HD days as outpatient for recurrent hyperkalemia despite dialysis
Restrict potassium restrict, FR 40 ounces/day
Remains on cefepime for pneumonia
plan of transfer to [facility] for ICD, if still here CMRI tomorrow
likely schedule HD after MRI
d/w cards and pt
-
-
Date of Service: June 21, 2023
CC / HPI / ROS
-
Chief Complaint:
End-stage renal disease
History of Present Illness:
ESRD Sunday
stable blood pressure off cardene gtt, hypotensive last night
Remains on cefepime in setting of pneumonia
sodium 132, k normal
wt decreasing
Review of Systems:
Awake alert and interactive
No fever
no cp or sob
Labs
-
Labs:
WBC 6.6 10^3/uL (4.8-10.8) 05/09/24 05:56
RBC 3.71 10^6/uL (4.20-5.40) L 06/21/23 05:56
Hgb 10.4 g/dL (12.0-16.0) L 06/21/23 05:56
Hct 32.2 % (37.0-47.0) L 06/21/23 05:56
Plt Count 143 10^3/uL (130-400) 06/21/23 05:56
Sodium 132 mmol/L (135-145) L 06/21/23 05:56
Potassium 4.0 mmol/L (3.5-5.1) D 06/21/23 05:56
Chloride 95 mmol/L (98-107) L 06/21/23 05:56
Carbon Dioxide 23 mmol/L (22-30) 06/21/23 05:56
BUN 51 mg/dl (7-17) H 06/21/23 05:56
Creatinine 5.5 mg/dL (0.6-1.0) H* 06/21/23 05:56
eGFR 9.56 06/21/23 05:56
Glucose 105 mg/dl (70-99) H 06/21/23 05:56
Calcium 8.2 mg/dl (8.4-10.2) L 06/21/23 05:56
Phosphorus 12.9 mg/dl (2.5-4.5) H 06/18/23 05:40
Albumin 4.0 g/dl (3.5-5.0) 06/21/23 05:56
Physical Exam
-
Vital Signs:
Vital Signs
Temp Pulse Resp BP Pulse Ox
97.7 F 67 20 152/111 99
06/21/23 08:09 06/21/23 08:46 06/19/23 09:55 06/21/23 08:46 06/21/23 08:00
Cardiovascular:: Regular rate and rhythm
Respiratory:: Bilateral: CTA
Lung Excursion:: Normal
Abdomen:: Nontender and Soft
Extremity Edema:: None: Bilateral:
Diallo Catheter: No
Other Findings::
right wrist AVF +ve thrill
--- NOTE | 2023-06-21 11:38 | CM ---
CM following re: discharge planning.
Discussed in rounds, reviewed pt's chart, met with pt and pt's sister Hui at bedside [phone].
Per Cardiology pt is accepted for admission to [facility] for ICD and pt will be transferred to [facility] when bed available.
D/C plan: Transfer to [facility] for device pavement when bed available.
CM will follow to assist with transfer as needed.
--- NOTE | 2023-06-21 11:55 | PTCARENOTE ---
Assessment remains unchanged, multiple family members at bedside, PT updated regarding transfer to [place], no complaints at this time, bed in lowest position, call sherman in reach, safe environment
[2023-06-21] MEDS: DILAUDID 0.25 MG IV (13:51)
--- NOTE | 2023-06-21 14:05 | PTCARENOTE ---
Report given to [facility] at this time, no bed available, PT to be transferred to IVU, safe environment provided
--- NOTE | 2023-06-21 15:45 | PTCARENOTE ---
Report given to Ceci RN, PT, PT's belongings and family transferred to 2250, all questions answered and emotional support given
--- NOTE | 2023-06-21 16:45 | PTCARENOTE ---
Rec'd pt as a transfer from ICU, AAOX3 w/no c/o CP or SOB. Pt able to ambulate into the rm unassisted. Pt w/belongings incl cell phone & screen making technician. Pt's VS stable w/HR in 60's-70's & pt SR per telemetry monitoring. Pt w/call sherman within reach & plan
of care ongoing.
--- NOTE | 2023-06-21 16:52 | W.PN.HOSP.TC ---
Addendum entered and electronically signed by Simone Lane MD 06/21/23 18:08:
Bed is available today at [facility] -- patient will be transported there tonight. Discharge order placed.
Original Note:
Today's Communication/Plan
-
Awaiting transfer to [facility] for ICD placement
Stop Amiodarone
Continue beta bryson
Continue antibiotics
Assessment / Plan
Assessment / Plan
Physical Exam
General: Not in acute distress
HEENT: Moist mucous membranes
Respiratory: Equal air entry bilaterally.
Cardiac: S1/S2, Regular Rhythm
GI: Soft, Non Tender, Non Distended and Normal Bowel Sounds
Musculoskeletal: No Cyanosis and No Edema
Neuro: Awake. Alert.

A/P: Patient is a 38y F with PMH significant for HTN and ESRD on HD who presents to ED in [place] with complaints of abdominal pain and N/V.
Sustained monomorphic ventricular tachycardia
Hyperkalemia
Prolonged QTc - uncertain etiology
Suspected Chronic HFpEF
- Patient extubated on June 19, 2023
- Temporizing measures performed in the ED for hyperkalemia.
- Lokelma given via OGT; however, some of this may have subsequently leaked from the tube.
- May benefit from Lokelma as outpatient for recurrent hyperkalemia despite dialysis
- Potassium-restricted diet
- Repeat morning labs
- Hemodialysis as per nephrology
- Stop Amiodarone as per cardiology and cardiac electrophysiology
- Continue Labetalol PO beta bryson
- Follow QT closely.
- Cardiology consulted, recommendations appreciated
- Will need [employer] ICD placement at [facility] - transfer has already been put in place by cardiology -- discussed this on June 21, [address] Ji
- If patient still here, then Cardiac MRI for June 22, 2023 (to check for myocarditis)
Ear and Throat Pain following Extubation
- ENT consult, recommendations appreciated: likely endotracheal tube trauma -- no further management needed
- Continue pain management
ESRD on HD
Acute on Chronic Hyperkalemia
Hyponatremia
- s/p HD session on Sunday with no missed sessions.
- [facility]
- Has apparently had recent issues with hyperkalemia and meds have been adjusted as a result.
- Would hold ARB / losartan in setting of hyperkalemia
- Nephrology evaluation as noted above.
- PO Fluid Restriction once eating and drinking
- Hemodialysis as per nephrology
- Though med lists are unclear, patient was previously on spironolactone and appears to currently be on losartan as noted above.
Hypertensive Emergency
History of Hypertensive Emergency
Multidrug Resistant Hypertension
- BP markedly elevated in the ED after catholic to sinus rhythm.
- Status post Nicardipine infusion
- Family notes long history of [id number] HTN despite multiple agents / med changes / etc.
- Continue Labetalol PO
- Nephrology input as noted above.
VDRF
Bilateral groundglass opacities on imaging
- Patient extubated on June 19, 2023
- Treat possible pneumonia as noted below.
- Health Advisor evaluation recommendations appreciated
Sepsis
Pneumonia
- CT scan shows bilateral lower lobe opacities c/w pneumonia.
- ? initial pneumonia which triggered GI symptoms, etc - versus aspiration due to recurrent N/V.
- Patient hypothermic in the ED - continue Bridget hugger as needed
- Status post Vancomycin
- Continue Cefepime
Intractable N/V
Hematemesis
- Patient with recent upper endoscopy 1 week ago in [place]
- ? primary gastroenteritis v sequelae of underlying pneumonia, etc.
- Suspect that N/V plus baseline hyperkalemia precipitated presenting events.
- Blood seen in emesis on admission is likely secondary to mucosal injury / Araceli-Zaragoza due to persistent emesis.
- IV PPI BID for now - Upon discharge can decrease down to daily.
- GI evaluation for any additional recommendations.
- Follow for any recurrent emesis or other new complaints.
- CT A/P done in the ED with no acute intra-abdominal pathology.
Abnormal LFTs
Lactic Acidosis
- Suspect this is secondary to hypoperfusion in the setting of VT.
- ? component of viral process / infection / sepsis given concurrent pneumonia.
- Follow for improvement with treatment outlined above.
History of renal transplant, explant in the past
History of lupus nephritis
DVT Prophylaxis: Subcut heparin
Code Status: Full
Anticipated Discharge: 24 - 48 hours
Subjective/Interval History
-
Date of Service: June 21, 2023
Patient was seen and examined. She reported that her throat and ears were still sore, but reported improvement from before. She denied any other new significant symptoms or complaints.
Objective Data
-
Labs:
Laboratory Results
06/21/23
05:56
WBC 6.6
Hgb 10.4 L
Hct 32.2 L
Plt Count 143
Sodium 132 L
Potassium 4.0 D
Chloride 95 L
Carbon Dioxide 23
BUN 51 H
Creatinine 5.5 H*
Glucose 105 H
Calcium 8.2 L
Total Bilirubin 1.2
AST 33
ALT 44 H
Alkaline Phosphatase 240 H
Vital Signs:
Vital Signs
Temp Pulse Resp BP Pulse Ox
98.6 F 72 16 145/95 100
06/21/23 16:38 06/21/23 16:15 06/21/23 16:38 06/21/23 16:01 06/21/23 16:38
I&O
06/20/23 06/21/2324
06:59 06:59 06:59
Intake Total 841.9 / 841.9 150.0 / 150.0
Balance 841.9 / 841.9 150.0 / 150.0
[2023-06-21] MEDS: MAXIPIME 1000 MG IV (18:00)
[2023-06-21] MEDS: FLUSH (NSS) 2 FLUSH IV (18:00)
[2023-06-21] MEDS: STERILE WATER FOR INJECTION 10 ML IV (18:00)
--- NOTE | 2023-06-21 18:32 | PTCARENOTE ---
Pt discharged to [facility], room 971; Transport via [facility] at 1820. Report called to [phone]. Pt's left w/2 cell phones and sister & friend transported pt's other personal belongings.
--- NOTE | 2023-06-24 12:03 | W.DCSUMMARY ---
Discharge Summary
Discharge Data
Date of Admission: 06/17/23
Date of Discharge: 06/21/23
Total time spent discharging patient (in min): 45
-
Pending Results: No
Hospital Course
38 y/o female with past medical history significant for end stage renal disease on hemodialysis, and [id number] hypertension who presented to the [facility] emergency department complaining of sense of impending doom with recent
nausea/vomiting and abdominal pain. Patient was noted to live in [facility] and was visiting her sister here in [facility]. She completed her usual hemodialysis session on Sunday and drove to [place]. Then, on Sunday, patient complained of mild
abdominal discomfort and had several episodes of non-bloody, bilious emesis. She took some antacids and her symptoms seemed to improve. On the day of presentation, patient had recurrent abdominal discomfort and further episodes of nausea and
vomiting - this time with some noted bright red blood in the emesis. On the evening of presentation, her sister noted that she appeared suddenly very pale and clammy and seemed less responsive. She called 911 at that point and patient was brought to
the emergency department by EMS. On arrival to the ED, patient was noted to be in ventricular tachycardia. She had pulses but was lethargic / poorly responsive. Patient received initial bolus doses of calcium and sodium bicarbonate without prompt
improvement. She underwent intubation and cardioversion in the ED with return to a sinus rhythm. Patient was placed on amiodarone infusion as well as nicardipine gtt for marked hypertension. Patient was admitted to the intensive care unit, and
gastroenterology, nephrology and cardiology were consulted. Patient had an echocardiogram which showed, as per field sales associate's report conclusions, 'Normal biventricular size and systolic function without regional wall motion abnormality. Estimated
LVEF 65%. Moderate concentric left ventricular hypertrophy. Mild aortic stenosis. Mild aortic regurgitation.' Patient was found to have bibasilar groundglass infiltrates and started on intravenous antibiotics. She was noted to have prolonged QTc.
Patient had hemodialysis. Gastroenterology recommended Protonix 40 mg IV once daily and mentioned they would not pursue upper endoscopy at this time given hemoglobin of 12 and her multiple other medical issues at this time. -- patient would be high
risk for endoscopy. Patient was able to be extubated on June 19, 2023. Patient had a cardiac cath on June 20, 2023 which showed as per field sales associate's conclusions, 'Right dominant circulation with minor luminal irregularities in the RCA and some mild
tapering of the proximal LAD, possibly the natural contour of the LAD versus very mild atherosclerosis. No obvious ischemic source for monomorphic ventricular tachycardia. Top normal to mildly elevated filling pressures (LVEDP = 14 mmHg, PCWP = 20
mmHg at 54.1 kg) with evidence of significant diastolic dysfunction (A wave to 35 mmHg).' ENT was consulted given patient's persistent throat and ear pain, and they mentioned that these problems seem to be related to endotracheal tube trauma and
should resolve spontaneously -- patient's ear and throat pain improved. Patient was started on Labetalol for better blood pressure control. Cardiology discussed case with cardiology at [place], patient's Amiodarone was stopped as per
title curative specialist recommendations, and patient was transferred to the [facility] for implantable cardioverter-defibrillator placement.
Discharge Plan
-
Patient Disposition: Acute Care Hospital
Condition: Serious
Discharge Orders:
Discharge Patient (As Directed); Ordered 06/21/23
Ordered By: Simone Lane
Discharge Date and Time
Discharge Date/Time: 06/21/23 18:33
Print Language: ARMENIAN
== END 2023-06-21 18:33 | disposition short-term general hospital (02) | DRG 871 ==
LOC: IVU 23:55
PROVIDERS: Internal Medicine Cardiovascular Disease; Internal Medicine Critical Care Medicine; Nurse Practitioner; Nurse Practitioner Family; Nurse Practitioner Gerontology; Nurse Practitioner Primary Care; ADMITTING PHYSICIAN Hospitalist; ATTENDING PHYSICIAN Hospitalist; CONSULT PHYSICIAN Internal Medicine Gastroenterology; EMERGENCY PHYSICIAN Emergency Medicine; OTHER PHYSICIAN Internal Medicine; OTHER PHYSICIAN Internal Medicine Cardiovascular Disease; OTHER PHYSICIAN Internal Medicine Critical Care Medicine; OTHER PHYSICIAN Otolaryngology Facial Plastic Surgery; OTHER PHYSICIAN Specialist
PROC: 5A1945Z Respiratory Ventilation, 24-96 Consecutive Hours (ICD-10-PCS; 2023-06-17)
PROC: B2111ZZ Fluoroscopy of Multiple Coronary Arteries using Low Osmolar Contrast (ICD-10-PCS; 2023-06-20)
PROC: 4A023N8 Measurement of Cardiac Sampling and Pressure, Bilateral, Percutaneous Approach (ICD-10-PCS; 2023-06-20)
PROC: B2161ZZ Fluoroscopy of Right and Left Heart using Low Osmolar Contrast (ICD-10-PCS; 2023-06-20)
DX: A41.9 Sepsis, unspecified organism (principal); I50.33 Acute on chronic diastolic (congestive) heart failure; N18.6 End stage renal disease; J69.0 Pneumonitis due to inhalation of food and vomit; I16.1 Hypertensive emergency; I5A Non-ischemic myocardial injury (non-traumatic); E87.20 Acidosis, unspecified; E87.1 Hypo-osmolality and hyponatremia; I13.2 Hypertensive heart and chronic kidney disease with heart failure and with stage 5 chronic kidney disease, or end stage renal disease; I47.29 Other ventricular tachycardia; E87.5 Hyperkalemia; F17.200 Nicotine dependence, unspecified, uncomplicated; K21.9 Gastro-esophageal reflux disease without esophagitis; Z79.82 Long term (current) use of aspirin; Z99.2 Dependence on renal dialysis; M32.14 Glomerular disease in systemic lupus erythematosus; Z11.52 Encounter for screening for COVID-19
CPT/HCPCS: 31500; 36556; 70450; 71045; 74176; 80048; 80053; 80061; 80076; 80202; 82248; 82805; 82962; 83036; 83605; 83690; 83735; 84100; 84132; 84443; 84478; 84484; 84703; 85018; 85025; 85027; 85610; 85730; 86850; 86900; 86901; 87040; 87641; 87811; 92610; 93005; 93306; 93460; 94002; 94003; 96365; 96375; 99291; 99292; C1769; C1894; G0257; P9047; Q9967